=== PATIENT | male | born 1950 | race African-American/Black ===

== ENCOUNTER 2017-03-25 16:57 | Observation (INO) | payer MEDICARE ==
[2017-03-25 17:35] LABS: Basophils % (Auto) 0.9 % (0.0-1.8); Eosinophils % (Auto) 9.5 % (0.0-4.3); Hematocrit 34.2 % (35.5-45.6); Hemoglobin 11.6 gm/dl (11.8-15.2); Mean Corpuscular HGB Conc 34 % (32-34); Mean Corpuscular Hemoglobin 31 pg (28-32); Mean Corpuscular Volume 92 fl (84-94); Platelet Count 428 K/mm3 (140-440); Red Blood Count 3.73 M/mm3 (3.65-5.03); Red Cell Distribution Width 13.2 % (13.2-15.2); White Blood Count 7.8 K/mm3 (4.5-11.0)
[2017-03-25 17:49] LABS: Anion Gap 19 mmol/L; BUN/Creatinine Ratio 18.33; Blood Urea Nitrogen 22 mg/dL (9-20); Calcium 8.7 mg/dL (8.4-10.2); Carbon Dioxide 23 mmol/L (22-30); Chloride 93.3 mmol/L (98-107); Glucose 346 mg/dL (75-100); Potassium 4.7 mmol/L (3.6-5.0); Sodium 131 mmol/L (137-145)
--- NOTE | 2017-03-25 18:33 | Emergency Department Report ---
HPI - General Chief Complaint: Hyperglycemia Time Seen by Provider: 03/25/17 18:01 - HPI HPI: This is a 67-year-old Irish male who presents to the emergency department from home with complaint of elevated blood sugar and chest pain. The patient is a insulin-dependent diabetic and records show that he should be on Novolin 70 /30 and Lantus. However he has either confused about his insulin regimen or he is out of the syringe and needles. However there is some home health care nurse that came and checked his blood sugar today and found it to be greater than 500. He says that the chest pain is midsternal, around his CABG scar and started about 4-5 hours ago. He denies any shortness of breath. The patient was here a few weeks ago and had a cardiac cath and then a CABG. He has not taken anything for his symptoms prior to presentation. ED Past Medical Hx - Past Medical History Previous Medical History?: Yes Hx Hypertension: Yes Hx Diabetes: Yes Additional medical history: HIGH CHOLESTEROL - Surgical History Past Surgical History?: Yes Hx Open Heart Surgery: Yes Additional Surgical History: back surgery - Social History Smoking Status: Never Smoker Substance Use Type: Prescribed - Medications Home Medications: Home Medications Medication Instructions Recorded Confirmed Last Taken Type Insulin Glargine [Lantus VIAL] 50 units SC QHS 03/01/17 03/25/17 02/28/17 History Losartan [Cozaar] 100 mg PO QHS 03/01/17 03/25/17 02/28/17 History Lovastatin [Altoprev] 20 mg PO QHS 03/01/17 03/25/17 02/28/17 History metFORMIN [Glucophage] 500 mg PO TID 03/01/17 03/25/17 03/01/17 History Insulin NPH/Regular [NovoLIN 70/30] 40 unit SC BIDDIAB 03/25/17 03/25/17 Unknown History traMADol [Ultram 50 MG tab] 50 mg PO Q6H PRN 03/25/17 03/25/17 Unknown History ED Review of Systems ROS: Stated complaint: HIGH BS Other details as noted in HPI Comment: All other systems reviewed and negative Constitutional: denies: chills, fever Eyes: denies: eye pain, eye discharge, vision change ENT: denies: ear pain, throat pain Respiratory: denies: cough, shortness of breath, wheezing Cardiovascular: chest pain. denies: palpitations Gastrointestinal: denies: abdominal pain, nausea, diarrhea Genitourinary: denies: urgency, dysuria Musculoskeletal: denies: back pain, joint swelling, arthralgia Skin: denies: rash, lesions Neurological: denies: headache, weakness, paresthesias Physical Exam - Physical Exam Vital Signs: Vital Signs 03/25/17 17:02 Temperature 98.3 F Pulse Rate 79 Respiratory 20 Rate Blood Pressure 161/89 O2 Sat by Pulse 98 Oximetry Physical Exam: GENERAL: The patient is well-developed well-nourished. HEENT: Normocephalic. Atraumatic. Extraocular motions are intact. Patient has moist mucous membranes. Pupils equal reactive to light bilaterally. NECK: Supple. Trachea is mid line. CHEST/LUNGS: Clear to auscultation. There is no respiratory distress noted. There is some reproducible midline tenderness to palpation around the area of his bypass scar. HEART/CARDIOVASCULAR: Regular. There is no tachycardia. There is no gallop rub or murmur. ABDOMEN: Abdomen is soft, nontender. Patient has normal bowel sounds. There is no abdominal distention. SKIN: There is no rash. There is no edema. There is no diaphoresis. NEURO: The patient is awake, alert, and oriented. The patient is cooperative. The patient has no focal neurologic deficits. The patient has normal speech. MUSCULOSKELETAL: There is no tenderness or deformity. There is no limitation range of motion. There is no evidence of acute injury. ED Course Vital Signs 03/25/17 17:02 Temperature 98.3 F Pulse Rate 79 Respiratory 20 Rate Blood Pressure 161/89 O2 Sat by Pulse 98 Oximetry ED Medical Decision Making - Lab Data Result diagrams: 03/25/17 17:16 03/25/17 17:16 - EKG Data -: EKG Interpreted by Me EKG shows normal: sinus rhythm, axis, intervals, QRS complexes (Q waves to the inferior leads), ST-T waves (T-wave inversions to the lateral leads) Rate: normal - EKG Data When compared to previous EKG there are: no significant change Interpretation: unchanged when compared t (03/02/17) - Radiology Data Radiology results: report reviewed, image reviewed interpreted by me: Chest x-ray shows some basilar pleural effusions. No obvious pneumonia. No pneumothorax. CT angiography of the chest does not show any pulmonary embolism. There is bilateral pleural effusions greater on left than right. - Medical Decision Making 67-year-old male presents with hyperglycemia and some chest pain that restarted a few hours prior to presentation. He has a recent CABG. His first troponin was elevated at 0.043 and there is no renal insufficiency but it is consistent with his previous troponin elevations. He was given IV insulin and his blood sugar came down to a much more reasonable level. There was no sign of diabetic ketoacidosis. EKG did not show any signs of ST elevation CT. The patient will be admitted to hospital for further evaluation and possible cardio consultation and has been accepted for admission by the hospitalist, Dr. Burgos. - Differential Diagnosis CT, PE, costochondritis, pneumonia, CHF, DKA Critical Care Time: No Critical care attestation.: If time is entered above; I have spent that time in minutes in the direct care of this critically ill patient, excluding procedure time. ED Disposition Clinical Impression: Uncontrolled hypertension, Elevated troponin I level, Hyperglycemia Chest pain Qualifiers: Chest pain type: unspecified Qualified Code(s): R07.9 - Chest pain, unspecified Disposition: OP ADMITTED IP TO THIS HOSP Is pt being admited?: Yes Does the pt Need Aspirin: Yes Condition: Stable Time of Disposition: 23:05
[2017-03-25 18:52] LABS: Bilirubin,Urine NEG (Negative); Blood,Urine NEG (Negative); Ketones,Urine NEG (Negative); Leukocyte Esterase,Urine NEG (Negative); Nitrite,Urine NEG (Negative); Urobilinogen,Urine < 2.0 mg/dL (<2.0); WBC,Urine < 1.0 /HPF (0.0-6.0)
[2017-03-25 19:01] LABS: INR 1.04 (0.87-1.13)
[2017-03-25 19:02] LABS: Partial Thromboplastin Time 30.7 Sec. (24.2-36.6)
[2017-03-25] MEDS ORDERED: NACL ONE (19:13)
--- NOTE | 2017-03-25 19:29 | Admit Criteria Form ---
Admission Criteria Documentation: CHEST PAIN Clinical Indications for Admission to Inpatient Care (Place 'X' for any and all applicable criteria): Admission is indicated for chest pain and ANY ONE of the following(1)(2)(3)(4)(5 ): [ ]I. Angina with acute coronary syndrome (Also use Myocardial Infarction or Angina guideline) [ ]II. Hemodynamic instability [X]III. Angina needing acute intervention as indicated by ALL of the following( 11)(12): [ ]a) Unstable angina is present as indicated by angina that is ANY ONE of the following: [ ]i) New onset [ ]ii) Nocturnal [ ]iii) Prolonged at rest [ ]iv) Progressive [X]b) Angina warrants acute intervention as indicated by ANY ONE of the following: [ ]i) Recurrent angina (e.g, not responding as previously to treatment) [ ]ii) Angina at rest or with low-level activities despite initial medical therapy [ ]iii) New or presumably new ST-segment depression on ECG [ ]iv) Signs or symptoms of heart failure (eg, dyspnea, pulmonary edema) [ ]v) New or worsening mitral regurgitation [ ]vi) Hemodynamic instability [ ]vii) Dangerous arrhythmia (eg, sustained ventricular tachycardia) [ ]viii) History of percutaneous coronary intervention within 6 months [X]ix) History of coronary artery bypass graft surgery [ ]x) RAFFAELE risk score of 2 or greater[A] [X]xi) History of Diabetes(14) [ ]xii) High-risk cardiac ischemia findings on noninvasive testing (e.g, echocardiogram, treadmill testing, nuclear scan) [ ]xiii) Chronic renal insufficiency (ie, estimated GFR less than 60 mL/min/1.732m) [ ]xiv) Left ventricular ejection fraction less than 40% [ ]IV. Evidence of MN (eg, cardiac biomarkers positive, ST-segment elevation on ECG) also use Myocardial Infarction Criteria Form. [ ]V. Pulmonary edema [ ]. Respiratory distress [ ]VII. Chest pain indicative of serious diagnosis other than coronary artery disease (eg, aortic dissection) [X]VIII. Contraindications and/or Inappropriate clinical situations for Observational Care in patients with Chest Pain, when ANY ONE of the following is required: [ ]a) Patient with risk factor for pulmonary embolism, acute coronary syndrome and myocardial infarction (18) [ ]b) Patient with Pulmonary embolism require an average LOS of 4.3 days, therefore emergency department observation management is inappropriate 18,23 [ ]c) Painful condition/s in the elderly, have the highest rate of recidivism after emergency department observation management (10.8%) 20,21 [X]d) Elevated cardiac biomarker requires intensive and exhaustive care (19) [X]IX. General contraindications and/or Inappropriate clinical situations for Observational Care in patients with Chest Pain, when ANY ONE of the following is required: [X]a) Prediction of prolongation of LOS based on ANY ONE of the following may be considered as a contraindication for observational care 2, 3, 4, 5, 6, 7, 8, 9, 10, 11 [X]i) Age > 65 yrs. [ ]ii) Patient arriving by ambulance [ ]iii) Patient with high acuity [ ]iv) Patient requiring vital sign monitoring [ ]v) Patient on IV medication [ ]b) Systolic blood pressures 180mmHg 3,12 [ ]c) Patient with altered mental status including delirium and other alteration of consciousness, (3) [ ]d) Patient whose discharge disposition will be to a correction home or rehabilitation home should not be managed in Emergency Department Observation Unit. CMS rule requires 3 days hospital stay before such placement. 3,13 [ ]e) Patient with failure to thrive due to broad array of etiologies 3,16,17 [ ]f) Inability to ambulate 3,14 Extended stay beyond goal length of stay may be needed for (1)(28): [ ]a) Specific condition diagnosed after evaluation (eg, pulmonary embolism, aortic dissection) [ ]b) Unstable angina [ ]c) Continued suspicion of acute coronary syndrome with inability to complete needed cardiac evaluation (eg, patient clinically unable to undergo stress testing) [ ]d) Myocardial infarction (Contents from ANGINA and CHEST PAIN clinical indications for admission to inpatient care have been integrated in this form) The original [employer] content created by [employer] has been revised. The portions of the content which have been revised are identified through the use of italic text or in bold, and [facility] has neither reviewed nor approved the modified material. All other unmodified content is copyright [employer]. Please see references footnoted in the original [facility] edition 2016 Admission Criteria Met: Yes
--- NOTE | 2017-03-25 20:26 | Cat Scan Report ---
FINAL REPORT EXAM: CT ANGIO CHEST HISTORY: CP, elevated dimer TECHNIQUE: CT the chest CT angiogram with intravenous contrast PRIORS: None. FINDINGS: There has been previous sternotomy. Heart is prominent size with ventricular wall thickening. the thoracic aorta is normal in caliber. No evidence for dissection. There are moderate bilateral layering pleural effusions greater on the right than on the left. There is some compressive atelectasis in the lower lobes. And there is no evidence for filling defect within central pulmonary arteries to suggest presence of acute pulmonary embolus There is no acute abnormality identified in the visualized portion upper abdomen. IMPRESSION: Bilateral pleural effusions greater on the right than on the left No CT evidence for acute pulmonary embolus
[2017-03-25] MEDS ORDERED: NITROSTAT SL PRN (22:28)
[2017-03-25] MEDS ORDERED: ZESTRIL PO ONE (22:28)
[2017-03-25] MEDS ORDERED: SODIUM CHLORIDE FLUSH SYRINGE 10 ML IV PRN (22:28)
--- NOTE | 2017-03-25 22:40 | History and Physical Report ---
History of Present Illness Date of examination: 03/25/17 Date of admission: 03/25/17 Chief complaint: Chest pain History of present illness: This is a 67-year-old [place]ian male who presents to the emergency department from home with complaint of elevated blood sugar and chest pain. The patient is a insulin-dependent diabetic and records show that he should be on Novolin 70 /30 and Lantus. However he has either confused about his insulin regimen or he is out of the syringe and needles. However there is some home health care nurse that came and checked his blood sugar today and found it to be greater than 500. He says that the chest pain is midsternal, around his CABG scar and started about 4-5 hours ago. He denies any shortness of breath. The patient was here a few weeks ago and had a cardiac cath and then a CABG. He has not taken anything for his symptoms prior to presentation. Past History Past Medical History: diabetes, hypertension, hyperlipidemia, CAD Past Surgical History: s/p CABG 2 weeks ago Social history: , lives with family. denies: smoking, alcohol abuse, prescription drug abuse Family history: hypertension Review of System: Constitutional: no fever, no chills, no weight loss Ears, eyes, nose, mouth and throat: no nasal congestion, no nasal discharge, no sinus pressure, no vision change, no red eye. Neck: No neck pain or rigidity. Cardiovascular: + chest pain, no orthopnea, no palpitations, no leg swelling Respiratory: No shortness of breath, no cough, no congestion, no wheezing Gastrointestinal: no abdominal pain, no nausea, no vomiting Genitourinary : no dysuria, no hematuria Musculoskeletal: no joint swelling or muscle ache Integumentary: no rash, no pruritis Neurological: no parathesias, no numbness, no tingling Endocrine: no cold or heat intolerance, no polyuria or polydipsia Hematologic/Lymphatic: no easy bruising, no easy bleeding, no gland swelling Allergic/Immunologic: no urticaria, no angioedema. Medications and Allergies Allergies Allergy/AdvReac Type Severity Reaction Status Date / Time No Known Allergies Allergy Verified 09/27/15 06:17 Home Medications Medication Instructions Recorded Confirmed Last Taken Type Insulin Glargine [Lantus VIAL] 50 units SC QHS 03/01/17 03/25/17 02/28/17 History Losartan [Cozaar] 100 mg PO QHS 03/01/17 03/25/17 02/28/17 History Lovastatin [Altoprev] 20 mg PO QHS 03/01/17 03/25/17 02/28/17 History metFORMIN [Glucophage] 500 mg PO TID 03/01/17 03/25/17 03/01/17 History Insulin NPH/Regular [NovoLIN 70/30] 40 unit SC BIDDIAB 03/25/17 03/25/17 Unknown History traMADol [Ultram 50 MG tab] 50 mg PO Q6H PRN 03/25/17 03/25/17 Unknown History Active Meds: Active Medications Aspirin (Ecotrin) 325 mg PO QDAY [place] Atorvastatin Calcium (Lipitor) 40 mg PO QHS [place] Carvedilol (Coreg) 6.25 mg PO BID [place] Docusate Sodium (Colace) 100 mg PO BID [place] Famotidine (Pepcid) 20 mg PO BID [place] Lisinopril (Zestril) 20 mg PO ONCE ONE Stop: 03/25/17 22:29 Morphine Sulfate (Morphine) 2 mg IV Q5MIN PRN PRN Reason: Chest Pain Nitroglycerin (Nitrostat) 0.4 mg SL Q5M PRN PRN Reason: Chest Pain Sodium Chloride (Sodium Chloride Flush Syringe 10 Ml) 10 ml IV PRN PRN PRN Reason: LINE FLUSH Exam - Physical Exam Narrative exam: GENERAL: This is well-developed well-nourished lying on bed appeared to be in no discomfort. HEENT: Normocephalic. Atraumatic. Extraocular motions are intact. No conjunctival congestion or icterus. Patient has moist mucous membranes. External auditory canal and nares patent bilaterally. NECK: Supple. Trachea midline. No JVD, thyromagaly or lymphadenopathy. CHEST/LUNGS: Clear to auscultated bilaterally. There is no respiratory distress noted, breathing nonlabored. No wheezes crackles or rhonchi. HEART/CARDIOVASCULAR: Regular in rate and rhythm. PMI at the apex. There is no gallop rub or murmur. ABDOMEN: Abdomen is soft, nontender. Patient has normal bowel sounds. There is no abdominal distention. No organomagaly or rigidity. SKIN: There is no rash, no erythrema. There is no diaphoresis. Warm and dry. NEUROLOGY: The patient is awake, alert, and oriented. The patient is cooperative. The patient has normal speech. No focal motor deficit. MUSCULOSKELETAL: No joint effusion or tenderness. Muscle strength equal bilaterally. No muscle wasting. EXTRIMITY: No edema, cyanosis or clubbing. PSYCH: No depression or anxiety noted. Cooperative. - Constitutional Vitals: Temp Pulse Resp BP Pulse Ox 98 F 80 15 177/96 98 03/25/17 18:30 03/25/17 22:34 03/25/17 22:34 03/25/17 22:34 03/25/17 22:34 Results - Labs CBC & Chem 7: 03/25/17 17:16 03/25/17 17:16 Labs: Abnormal lab results 03/25/17 03/25/17 03/25/17 Range/Units 17:02 17:16 17:16 Hgb 11.6 L (11.8-15.2) gm/dl Hct 34.2 L (35.5-45.6) % Wheeler % (Auto) 9.7 H (0.0-7.3) % Eos % (Auto) 9.5 H (0.0-4.3) % Eos # 0.7 H (0.0-0.4) K/mm3 D-Dimer (0-234) ng/mlDDU Sodium 131 L (137-145) mmol/L Chloride 93.3 L (98-107) mmol/L BUN 22 H (9-20) mg/dL Glucose 346 H (75-100) mg/dL POC Glucose 350 H (70-105) Troponin T (0.00-0.029) ng/mL NT-Pro-B Natriuret Pep (0-900) pg/mL Triglycerides (2-149) mg/dL HDL Cholesterol (40-59) mg/dL 03/25/17 03/25/17 03/25/17 Range/Units 18:39 18:39 18:39 Hgb (11.8-15.2) gm/dl Hct (35.5-45.6) % Wheeler % (Auto) (0.0-7.3) % Eos % (Auto) (0.0-4.3) % Eos # (0.0-0.4) K/mm3 D-Dimer 1281.92 H (0-234) ng/mlDDU Sodium (137-145) mmol/L Chloride (98-107) mmol/L BUN (9-20) mg/dL Glucose (75-100) mg/dL POC Glucose (70-105) Troponin T 0.043 H (0.00-0.029) ng/mL NT-Pro-B Natriuret Pep 1109 H (0-900) pg/mL Triglycerides 171 H (2-149) mg/dL HDL Cholesterol 32 L (40-59) mg/dL 03/25/17 03/25/17 Range/Units 18:44 20:36 Hgb (11.8-15.2) gm/dl Hct (35.5-45.6) % Wheeler % (Auto) (0.0-7.3) % Eos % (Auto) (0.0-4.3) % Eos # (0.0-0.4) K/mm3 D-Dimer (0-234) ng/mlDDU Sodium (137-145) mmol/L Chloride (98-107) mmol/L BUN (9-20) mg/dL Glucose (75-100) mg/dL POC Glucose 358 H 155 H (70-105) Troponin T (0.00-0.029) ng/mL NT-Pro-B Natriuret Pep (0-900) pg/mL Triglycerides (2-149) mg/dL HDL Cholesterol (40-59) mg/dL Assessment and Plan Acute chest pain with elevated troponin Coronary artery disease status post CABG on 03/10 Diabetes mellitus type 2 Hypertension, uncontrolled Bilateral pleural effusion CHF with systolic dysfunction - will admit to telemetry bed - monitor with serial CE and EKG, CTA was negative for acute PE - 2-D echo on 03/10 showed EF 35-40% - will place on Aspirin, statin - will place on lovenox therapeutic dose - as needed SL NTG and iv morphin for pain - Monitor BP, add betablocker, ACEI and Lasix - cardiology consult in the am - cardiac diet now, resume home meds - provide DVT Px with lovenox It took me about 45 minutes for initial care of this patient including history and physical, reviewing initial lab results and ER documents, placing admission orders, bedside counseling and coordination of care.
[2017-03-25] MEDS ORDERED: ZOFRAN IV PRN (23:07)
[2017-03-25] MEDS ORDERED: APRESOLINE IV PRN (23:07)
[2017-03-25] MEDS: COREG PO SCH (23:42)
[2017-03-25] MEDS: LASIX IV SCH (23:45)
[2017-03-26 00:13] LABS: Creatine Kinase MB 2.2 ng/mL (0.0-4.0)
[2017-03-26] MEDS ORDERED: DUONEB 0.5 MG-3 MG/3 ML SOLN IH SCH (02:00)
[2017-03-26] MEDS: LASIX IV SCH ×2 (06:20→17:52)
[2017-03-26 06:27] LABS: Creatine Kinase MB 1.8 ng/mL (0.0-4.0)
--- NOTE | 2017-03-26 07:42 | XRay Report ---
AP CHEST History: Chest pain. Findings: CABG changes have been performed since 03/01/17 examination. Mild cardiomegaly and pulmonary venous congestion are suspected on today's exam. Trace left pleural effusion or segmental atelectasis in the left lower lobe is also suspected. The right lung is generally clear. No pneumothorax. Impression: Mild congestive changes as described. Left lower lobe opacity which probably represents segmental atelectasis.
[2017-03-26] MEDS ORDERED: LOVENOX SUB-Q SCH ×3 (09:00→22:00)
[2017-03-26] MEDS: MORPHINE IV PRN (09:11)
--- NOTE | 2017-03-26 09:47 | Consultation ---
History of Present Illness Consult date: 03/26/17 Consult reason: chest pain, known to you History of present illness: Patient is a 67-year-old man with a history of hypertension, diabetes and hyperlipidemia. He also has an ischemic cardiomyopathy, EF 35% and coronary artery disease status post bypass grafting at [facility] 3 weeks ago. He is a poor historian due to language barrier, as he speaks little or no Mauritian. He was brought to this hospital with complaints of hyperglycemia. Glucose of 358 on presentation. In addition to hyperglycemia, patient also described shortness of breath and mid sternal chest pain of sternal scar thus this cardiac consultation. His ECG shows a sinus rhythm with nonspecific inferolateral T-wave abnormalities. No acute ischemic changes when compared to prior ECG. Chest CTA showed bilateral pleural effusion with right greater than the left. There was no evidence of pulmonary embolism. Past History Past Medical History: CAD, diabetes, heart failure, hypertension, hyperlipidemia Past Surgical History: CABG Medications and Allergies Allergies Allergy/AdvReac Type Severity Reaction Status Date / Time No Known Allergies Allergy Verified 09/27/15 06:17 Home Medications Medication Instructions Recorded Confirmed Last Taken Type Insulin Glargine [Lantus VIAL] 50 units SC QHS 03/01/17 03/25/17 02/28/17 History Losartan [Cozaar] 100 mg PO QHS 03/01/17 03/25/17 02/28/17 History Lovastatin [Altoprev] 20 mg PO QHS 03/01/17 03/25/17 02/28/17 History metFORMIN [Glucophage] 500 mg PO TID 03/01/17 03/25/17 03/01/17 History Insulin NPH/Regular [NovoLIN 70/30] 40 unit SC BIDDIAB 03/25/17 03/25/17 Unknown History traMADol [Ultram 50 MG tab] 50 mg PO Q6H PRN 03/25/17 03/25/17 Unknown History Active Meds: Active Medications Albuterol/Ipratropium (Duoneb 0.5 Mg-3 Mg/3 Ml Soln) 1 ampul IH TIDRT [facility] Aspirin (Ecotrin) 325 mg PO QDAY [facility] Atorvastatin Calcium (Lipitor) 40 mg PO QHS [facility] Last Admin: 03/25/17 23:44 Dose: 40 mg Carvedilol (Coreg) 6.25 mg PO BID [facility] Last Admin: 03/25/17 23:42 Dose: 6.25 mg Docusate Sodium (Colace) 100 mg PO BID [place] Enoxaparin Sodium (Lovenox) 80 mg SUB-Q Q12H [place] Famotidine (Pepcid) 20 mg PO BID [place] Furosemide (Lasix) 40 mg IV 0600,1800 [place] Last Admin: 03/26/17 06:20 Dose: 40 mg Hydralazine HCl (Apresoline) 5 mg IV Q30MIN PRN PRN Reason: Hypertension Last Admin: 03/25/17 23:41 Dose: 5 mg Insulin Human Isoph/Insulin Regular (Novolin 70/30) 40 unit SUB-Q BIDDIAB [place] Insulin Human Regular (Novolin R) 0 units SUB-Q ACHS [place] PRN Reason: Protocol Losartan Potassium (Cozaar) 100 mg PO QHS [place] Morphine Sulfate (Morphine) 2 mg IV Q5MIN PRN PRN Reason: Chest Pain Last Admin: 03/26/17 09:11 Dose: 2 mg Nitroglycerin (Nitrostat) 0.4 mg SL Q5M PRN PRN Reason: Chest Pain Ondansetron HCl (Zofran) 4 mg IV Q8H PRN PRN Reason: N/V unrelieved by Reglan Sodium Chloride (Sodium Chloride Flush Syringe 10 Ml) 10 ml IV PRN PRN PRN Reason: LINE FLUSH Physical Examination Vital Signs Temp Pulse Resp BP Pulse Ox 98.3 F 79 20 161/89 98 03/25/17 17:02 03/25/17 17:02 03/25/17 17:02 03/25/17 17:02 03/25/17 17:02 General appearance: no acute distress HEENT: Positive: PERRL Neck: Positive: trachea midline Cardiac: Positive: Reg Rate and Rhythm Lungs: Positive: Decreased Breath Sounds Neuro: Positive: Grossly Intact Results 03/25/17 17:16 03/25/17 17:16 Cardiac Enzymes 03/25/17 03/26/17 Range/Units 23:34 05:17 CK-MB (CK-2) 2.2 1.8 (0.0-4.0) ng/mL Assessment and Plan Uncontrolled Diabetes mellitus Pleural effusion, bilateral no evidence of PE on CTA Hx of Ischemic Cardiomyopathy, EF 35% Hx of CAD with recent CABG
[2017-03-26] MEDS: DUONEB 0.5 MG-3 MG/3 ML SOLN IH SCH ×3 (09:50→20:05)
--- NOTE | 2017-03-26 10:23 | Progress Note ---
Assessment and Plan Assessment and plan: Son at bedside was the Hungarian translator and interpreter Patient is 67-year-old Hungarian speaking man with a history of hypertension, type 2 diabetes mellitus, dyslipidemia, ischemic cardiomyopathy EF 35% and coronary artery disease status post CABG at [facility] approximately 3 weeks ago. He was transferred from here 03/03/2017 for CABG. 1 week after discharge from [facility] he had a left thoracentesis now presents with home health finding blood sugar over 500. Patient also describes shortness of breath and substernal chest pain underwent a sternal scar. CTA of the chest showed no PE but bilateral pleural effusion right greater than left, chest x-ray showed mild congestive changes and some atelectasis. -Coronary artery disease status post CABG: Consulted Cardiology since patient is less than a month out from CABG, ?questionable if he needs to be transferred back to [facility] for another thoracentesis this time on his right lung due to pleural effusion. Chest pains with mildly elevated Troponin but normal CK -MB, I don't believe this is ACS, will defer to Cardiology -Acute on chronic HFrEF: treat with diuresis, cardiology to see -Bilateral pleural effusion as above -Type 2 diabetes mellitus, chronic and uncontrolled-add sliding scale insulin -Hypertension with heart disease: Continue medical management -DVT prophylaxis-SCDs, he was placed on therapeutic dose of Lovenox for acute coronary syndrome by Dr. Burgos, will stop and consult Cardiology full code History Interval history: Patient seen and examined. Follow up on chest pain and hyperglycemia. Chest pain is still present subsequently on the new CABG scar. Overnight uneventful. No n/v or severe headaches. Imaging, old records, testing, labs, nursing notes reviewed. Hospitalist Physical - Physical exam Narrative exam: GEN: WDWN, NAD, AWAKE, ALERT, ORIENTATED x 3 CVS: RRR, NORMAL S1S2 LUNGS/CHEST: CTA B, NORMAL CHEST EXPANSION B, GOOD AIR ENTRY B, chest wall tenderness ABD: SOFT, NTND, GBS, NO REBOUND OR GUARDING MSK: FROM X 4 EXTREMITIES NEURO: CN 2-12 GROSSLY INTACT, NO FOCAL DEFICITS PSY: CALM - Constitutional Vitals: Temp Pulse Resp BP Pulse Ox 98.5 F 74 16 139/72 98 03/26/17 07:10 03/26/17 09:59 03/26/17 09:59 03/26/17 07:10 03/26/17 09:49 General appearance: Present: no acute distress Results - Labs CBC & Chem 7: 03/25/17 17:16 03/25/17 17:16 Labs: Laboratory Last Values WBC 7.8 K/mm3 (4.5-11.0) 03/25/17 17:16 RBC 3.73 M/mm3 (3.65-5.03) 03/25/17 17:16 Hgb 11.6 gm/dl (11.8-15.2) L 03/25/17 17:16 Hct 34.2 % (35.5-45.6) L 03/25/17 17:16 MCV 92 fl (84-94) 03/25/17 17:16 MCH 31 pg (28-32) 03/25/17 17:16 MCHC 34 % (32-34) 03/25/17 17:16 RDW 13.2 % (13.2-15.2) 03/25/17 17:16 Plt Count 428 K/mm3 (140-440) 03/25/17 17:16 Lymph % (Auto) 23.0 % (13.4-35.0) 03/25/17 17:16 [place] % (Auto) 9.7 % (0.0-7.3) H 03/25/17 17:16 Eos % (Auto) 9.5 % (0.0-4.3) H 03/25/17 17:16 Baso % (Auto) 0.9 % (0.0-1.8) 03/25/17 17:16 Lymph # 1.8 K/mm3 (1.2-5.4) 03/25/17 17:16 [place] # 0.8 K/mm3 (0.0-0.8) 03/25/17 17:16 Eos # 0.7 K/mm3 (0.0-0.4) H 03/25/17 17:16 Baso # 0.1 K/mm3 (0.0-0.1) 03/25/17 17:16 Seg Neutrophils % 56.9 % (40.0-70.0) 03/25/17 17:16 Seg Neutrophils # 4.4 K/mm3 (1.8-7.7) 03/25/17 17:16 PT 13.5 Sec. (12.2-14.9) 03/25/17 18:39 INR 1.04 (0.87-1.13) 03/25/17 18:39 APTT 30.7 Sec. (24.2-36.6) 03/25/17 18:39 D-Dimer 1281.92 ng/mlDDU (0-234) H 03/25/17 18:39 VBG pH 7.355 (7.320-7.420) 03/25/17 17:16 Sodium 131 mmol/L (137-145) L 03/25/17 17:16 Potassium 4.7 mmol/L (3.6-5.0) 03/25/17 17:16 Chloride 93.3 mmol/L (98-107) L 03/25/17 17:16 Carbon Dioxide 23 mmol/L (22-30) 03/25/17 17:16 Anion Gap 19 mmol/L 03/25/17 17:16 BUN 22 mg/dL (9-20) H 03/25/17 17:16 Creatinine 1.2 mg/dL (0.8-1.5) 03/25/17 17:16 Estimated GFR > 60 ml/min 03/25/17 17:16 BUN/Creatinine Ratio 18.33 % 03/25/17 17:16 Glucose 346 mg/dL (75-100) H 03/25/17 17:16 POC Glucose 155 (70-105) H 03/25/17 20:36 Calcium 8.7 mg/dL (8.4-10.2) 03/25/17 17:16 Total Creatine Kinase 43 units/L (55-170) L 03/26/17 05:17 CK-MB (CK-2) 1.8 ng/mL (0.0-4.0) 03/26/17 05:17 CK-MB (CK-2) Rel Index 4.1 (0-4) H 03/26/17 05:17 Troponin T 0.073 ng/mL (0.00-0.029) H D 03/26/17 05:17 NT-Pro-B Natriuret Pep 1109 pg/mL (0-900) H 03/25/17 18:39 Triglycerides 171 mg/dL (2-149) H 03/25/17 18:39 Cholesterol 132 mg/dL (50-199) 03/25/17 18:39 LDL Cholesterol Direct 66 mg/dL (50-130) 03/25/17 18:39 HDL Cholesterol 32 mg/dL (40-59) L 03/25/17 18:39 Cholesterol/HDL Ratio 4.12 % 03/25/17 18:39 Urine Color Yellow (Yellow) 03/25/17 18:32 Urine Turbidity Clear (Clear) 03/25/17 18:32 Urine pH 6.0 (5.0-7.0) 03/25/17 18:32 Ur Specific [place] 1.014 (1.003-1.030) 03/25/17 18:32 Urine Protein 100 mg/dl mg/dL (Negative) 03/25/17 18:32 Urine Glucose (UA) >=500 mg/dL (Negative) 03/25/17 18:32 Urine Ketones Neg mg/dL (Negative) 03/25/17 18:32 Urine Blood Neg (Negative) 03/25/17 18:32 Urine Nitrite Neg (Negative) 03/25/17 18:32 Urine Bilirubin Neg (Negative) 03/25/17 18:32 Urine Urobilinogen < 2.0 mg/dL (<2.0) 03/25/17 18:32 Ur Leukocyte Esterase Neg (Negative) 03/25/17 18:32 Urine WBC (Auto) < 1.0 /HPF (0.0-6.0) 03/25/17 18:32 Urine RBC (Auto) 4.0 /HPF (0.0-6.0) 03/25/17 18:32 U Epithel Cells (Auto) < 1.0 /HPF (0-13.0) 03/25/17 18:32
[2017-03-26] MEDS: ECOTRIN PO SCH (11:28)
[2017-03-26] MEDS: COLACE PO SCH ×2 (11:28→22:40)
[2017-03-26] MEDS: PEPCID PO SCH ×2 (11:28→22:40)
[2017-03-26] MEDS: COREG PO SCH ×2 (11:28→22:40)
[2017-03-26] MEDS ORDERED: COZAAR PO SCH (22:00)
[2017-03-27] MEDS: MORPHINE IV PRN (01:42)
[2017-03-27] MEDS: LASIX IV SCH (05:16)
[2017-03-27] MEDS: DUONEB 0.5 MG-3 MG/3 ML SOLN IH SCH (07:54)
[2017-03-27 08:46] VITALS: BP 122/74
--- NOTE | 2017-03-27 09:17 | Discharge Summary ---
Providers - Providers Date of Admission: 03/25/17 22:28 Date of discharge: 03/27/17 Attending physician: MAXINE RICHMOND 03/26/17 08:09 Consult to Physician [CONS] Routine Consulting Provider: DELMER WATSON Reason For Exam: CABG less than 3 weeks, CP, pt known to you Place consult to:: Mima MCKINLEY Notified:: Inés PERSON Was contact made?: Yes If yes, spoke with:: Bella Time called:: 09:10 Primary care physician: FISH PEDDLER Hospitalization Condition: Stable Hospital course: Language line used for Lithuanian senior sales assistant Patient is 67-year-old Lithuanian speaking man with a history of hypertension, type 2 diabetes mellitus, dyslipidemia, ischemic cardiomyopathy EF 35% and coronary artery disease status post CABG at [facility] approximately 3 weeks ago. He was transferred from here 03/03/2017 for CABG. 1 week after discharge from [facility] he had a left thoracentesis now presents with home health finding blood sugar over 500. Patient also describes shortness of breath and substernal chest pain underwent a sternal scar. CTA of the chest showed no PE but bilateral pleural effusion right greater than left, chest x-ray showed mild congestive changes and some atelectasis. -Coronary artery disease status post CABG: Consulted Cardiology since patient is less than a month out from CABG, ?questionable if he needs to be transferred back to [facility] for another thoracentesis this time on his right lung due to pleural effusion. Chest pains with mildly elevated Troponin but normal CK -MB, I don't believe this is ACS, will defer to Cardiology -Acute on chronic HFrEF: treat with diuresis, cardiology to see -Bilateral pleural effusion as above -Type 2 diabetes mellitus, chronic and uncontrolled-add sliding scale insulin -Hypertension with heart disease: Continue medical management -DVT prophylaxis-SCDs, he was placed on therapeutic dose of Lovenox for acute coronary syndrome by Dr. Burgos, will stop and consulted Cardiology full code per Cardiology: "Patient seen and examined Patient admitted for hyperglycemia. He denies chest pain or shortness of breath Cardiac enzymes are non-specifically elevated post bypass surgery. BNP is elevated suggesting high filling pressures. CTA chest showing no PE but evidence of bilateral pleural effusions (right>left). Exam however does not suggest significant pleural effusion. There is crackles on the right side however. Recommend tight blood glucose control, gentle diuresis. No need for thoracentesis. Patient advised to use the home spirometer more frequently in order to treat his compression atelectasis. No other cardiac work-up is needed" all the showroom sales consultant's notes that we will consult note from discharge summary a course of oral up with her quality per cardiology " He denies cp, sob. Disposition: DISCHARGED TO HOME OR SELFCARE Time spent for discharge: 34 minutes Core Measure Documentation - Palliative Care Palliative Care/ Comfort Measures: Not Applicable - Core Measures Any of the following diagnoses?: heart failure - VTE Discharge Requirements Deep Vein Thrombosis/Pulmonary Embolism Present on Admission: No Has pt received <5 days of overlap therapy or INR<2.0: No Anticoagulant overlap therapy prescribed at discharge: No Contraindication No Overlap Therapy order at DC: Not Indicated - Heart Failure Discharge Requirements SHELLY/ARB for LVSD if EF <40%: Yes Beta king at discharge: Yes Exam - Physical Exam Narrative exam: GEN: WDWN, NAD, AWAKE, ALERT, ORIENTATED x 3 CVS: RRR, NORMAL S1S2 LUNGS/CHEST: CTA B, NORMAL CHEST EXPANSION B, GOOD AIR ENTRY B, chest wall tenderness ABD: SOFT, NTND, GBS, NO REBOUND OR GUARDING MSK: FROM X 4 EXTREMITIES NEURO: CN 2-12 GROSSLY INTACT, NO FOCAL DEFICITS PSY: CALM - Constitutional Vitals: Temp Pulse Resp BP Pulse Ox 97.7 F 80 18 122/74 93 03/27/17 07:40 03/27/17 07:54 03/27/17 07:54 03/27/17 07:40 03/27/17 07:54 Plan Activity: other (no strenous activites until cleared by cardiology) Diet: low salt, diabetic Special Instructions: record daily BP diary, record blood sugar diary Durable Medical Equipment Needed Upon Discharge: Nebulizer Follow up with: [facility] [Outside] - 04/15/17 1:45 pm PRIMARY MD RICHARDSON [Primary Care Provider] - 7 Days DELMER WATSON MD [Staff Physician] - 7 Days Prescriptions: Carvedilol [Coreg] 6.25 mg PO BID #60 tablet Furosemide [Lasix TAB] 40 mg PO QDAY #30 tablet Insulin Aspart [NovoLOG Flexpen] 1 dose SQ AC #1 pen Nitroglycerin [Nitrostat] 0.4 mg SL Q5M PRN #15 tablet PRN Reason: Chest Pain Potassium Chloride [K-Dur] 20 meq PO QDAY #30 tablet Ipratropium/Albuterol Sulfate [Duoneb 0.5 mg-3 mg/3 ml Soln] 1 ampul IH TIDRT PRN #30 ampul.neb PRN Reason: Shortness Of Breath
[2017-03-27] MEDS: COLACE PO SCH (09:59)
[2017-03-27] MEDS: PEPCID PO SCH (09:59)
[2017-03-27] MEDS: COREG PO SCH (09:59)
[2017-03-27] MEDS: ECOTRIN PO SCH (09:59)
--- NOTE | 2017-03-27 10:22 | Progress Note ---
Assessment and Plan - Patient Problems (1) Status post coronary artery bypass graft Current Visit: Yes Status: Acute Plan to address problem: Patient's cardiac status is stable, and continue medical therapy for ischemic cardiomyopathy including afterload reducing therapy, and coronary artery disease including oral antiplatelet therapy. Patient is stable for cardiac discharge, instructed follow-up with Dr. Murillo in one week, and has appointment with his cardiothoracic surgeon in 3 weeks. Subjective Date of service: 03/27/17 Interval history: Patient looks and feels better, his blood sugar is under better control, about 120. There are no cardiac complaints. His sternal scar from the recent coronary bypass surgery is healing well. Objective Vital Signs Temp Pulse Pulse Pulse Pulse Resp Resp 03/27/17 10:00 82 03/27/17 07:54 80 18 03/27/17 07:40 97.7 F 80 18 03/27/17 04:00 98.3 F 74 20 03/27/17 00:49 98.5 F 82 20 03/26/17 22:00 80 03/26/17 21:17 97.9 F 81 20 03/26/17 20:25 03/26/17 20:17 78 18 03/26/17 20:05 80 16 03/26/17 20:01 18 03/26/17 17:39 98.3 F 74 12 Resp BP BP Pulse Ox 03/27/17 10:00 20 97 03/27/17 07:54 93 03/27/17 07:40 122/74 95 03/27/17 04:00 129/62 96 03/27/17 00:49 101/55 94 03/26/17 22:00 03/26/17 21:17 125/62 95 03/26/17 20:25 93 03/26/17 20:17 03/26/17 20:05 03/26/17 20:01 03/26/17 17:39 130/67 96 - Physical Examination General: Appears Well, No Apparent Distress HEENT: Positive: PERRL Neck: Positive: trachea midline Cardiac: Positive: Reg Rate and Rhythm Lungs: Positive: Decreased Breath Sounds Neuro: Positive: Grossly Intact Abdomen: Positive: Soft Skin: Positive: Clear Extremities: Absent: edema
== END 2017-03-27 11:47 | disposition home or self-care (01) ==
LOC: ED 16:57 → 4A 22:28
PROVIDERS: ADMIT Internal Medicine; ATTEND Internal Medicine
DX: R07.89 Other chest pain (principal); I25.10 Atherosclerotic heart disease of native coronary artery without angina pectoris; E11.65 Type 2 diabetes mellitus with hyperglycemia; I10 Essential (primary) hypertension; J90 Pleural effusion, not elsewhere classified; I50.20 Unspecified systolic (congestive) heart failure; E78.5 Hyperlipidemia, unspecified; I25.5 Ischemic cardiomyopathy; R79.89 Other specified abnormal findings of blood chemistry; Z95.1 Presence of aortocoronary bypass graft; Z82.49 Family history of ischemic heart disease and other diseases of the circulatory system
CPT/HCPCS: 36415; 71010; 71275; 80048; 80061; 81001; 82550; 82553; 82805; 82962; 83880; 84484; 85025; 85379; 85610; 85730; 93005; 93010; 94640; 96372; 96374; 96375; 96376; 99285; A9270; G0378; J0360; J1650; J1940; J2270; Q9967; J1815

== ENCOUNTER 2017-09-07 11:55 | Outpatient (CLI) | payer MEDICARE ==
--- NOTE | 2017-09-07 12:53 | Nuclear Medicine Report ---
LUNG SCAN, VENTILATION AND PERFUSION: History: Shortness of breath. Findings: Inhalation of Xenon gas demonstrates a normal distribution of the activity throughout both lungs. The wash out phases show no focal retention of activity. After injection of Technetium 99m macroaggregated albumin gamma camera imaging of the lungs in multiple projections demonstrates normal pulmonary contours with a homogeneous distribution of activity. No focal areas of perfusion deficiency are identified. IMPRESSION: Normal study.
== END 2017-09-07 11:56 | disposition home or self-care (01) ==
LOC: NM 11:55
PROVIDERS: ATTEND Internal Medicine
DX: R06.02 Shortness of breath (principal)
CPT/HCPCS: 78582; A9540; A9558

== ENCOUNTER 2017-10-22 13:33 | Emergency (ER) | payer MEDICARE ==
[2017-10-22 13:54] VITALS: BP 121/73
[2017-10-22 14:37] LABS: Basophils # (Auto) 0.1 K/mm3 (0.0-0.1); Basophils % (Auto) 0.7 % (0.0-1.8); Eosinophils # (Auto) 0.8 K/mm3 (0.0-0.4); Eosinophils % (Auto) 8.8 % (0.0-4.3); Hematocrit 42.8 % (35.5-45.6); Hemoglobin 14.5 gm/dl (11.8-15.2); Lymphocytes # (Auto) 2.6 K/mm3 (1.2-5.4); Lymphocytes % (Auto) 27.2 % (13.4-35.0); Mean Corpuscular HGB Conc 34 % (32-34); Mean Corpuscular Hemoglobin 31 pg (28-32); Mean Corpuscular Volume 93 fl (84-94); Monocytes # (Auto) 0.6 K/mm3 (0.0-0.8); Monocytes % (Auto) 6.5 % (0.0-7.3); Platelet Count 266 K/mm3 (140-440); Red Blood Count 4.63 M/mm3 (3.65-5.03); Red Cell Distribution Width 13.6 % (13.2-15.2)
[2017-10-22 14:42] LABS: Bacteria,Urine 1+ /HPF (Negative); Bilirubin,Urine NEG (Negative); Blood,Urine NEG (Negative); Color,Urine Yellow (Yellow); Granular Casts,Urine 3 /LPF; Hyaline Casts,Urine 1 /LPF; Nitrite,Urine NEG (Negative); Urobilinogen,Urine < 2.0 mg/dL (<2.0); WBC,Urine < 1.0 /HPF (0.0-6.0)
[2017-10-22 14:46] LABS: Protein,Urine >500 mg/dL (Negative)
[2017-10-22 14:50] LABS: Calcium 9.3 mg/dL (8.4-10.2)
[2017-10-22 16:33] LABS: Bilirubin,Urine NEG (Negative); Blood,Urine NEG (Negative); Color,Urine Yellow (Yellow); Mucus,Urine FEW /HPF; Nitrite,Urine NEG (Negative); Urobilinogen,Urine < 2.0 mg/dL (<2.0)
[2017-10-22 16:37] LABS: Protein,Urine >500 mg/dL (Negative)
== END 2017-10-23 02:00 | disposition left against medical advice (07) ==
LOC: ED 13:33
DX: I10 Essential (primary) hypertension (principal); Z53.21 Procedure and treatment not carried out due to patient leaving prior to being seen by health care provider
CPT/HCPCS: 36415; 80048; 81001; 82805; 82962; 85025

== ENCOUNTER 2017-10-23 10:49 | Inpatient (IN) | payer MEDICARE ==
[2017-10-23] MEDS ORDERED: BABY ASPIRIN PO ONE (11:31)
--- NOTE | 2017-10-23 11:37 | Emergency Department Report ---
ED Chest Pain HPI - General Chief Complaint: Hyperglycemia Stated Complaint: HIGH BLOOD SUGAR Time Seen by Provider: 10/23/17 11:26 Source: patient Mode of arrival: Ambulatory Limitations: No Limitations - History of Present Illness Initial Comments: Patient is 67 year old Malaysian male, he presented to the ER with chest pain started yesterday. Patient described his chest pain as substernal, heaviness does not radiate. Patient denied any fever or shortness of breath. Patient had CABG at [facility] 7 month ago. Patient denied any nausea or vomiting or headache. MD Complaint: chest pain -: days(s) Onset: during rest Pain Location: substernal Pain Radiation: none Quality: tightness, heaviness Improves With: nothing Worsens With: nothing Treatments Prior to Arrival: none - Related Data Home Medications Medication Instructions Recorded Confirmed Last Taken Aspirin BABY CHEW TAB 81 mg PO QDAY MDD 81mg 04/22/17 04/22/17 04/20/17 08:00 81mg Clopidogrel [Plavix] 75 mg PO 4XD MDD 75mg 04/22/17 04/22/17 04/18/17 08:00 75mg Lisinopril [Zestril TAB] 5 mg PO QDAY MDD 5mg 04/22/17 04/22/17 04/20/17 08:00 5mg Metoprolol [Lopressor TAB] 50 mg PO BID 04/22/17 04/22/17 04/20/17 21:00 50mg Previous Rx's Medication Instructions Recorded Last Taken Type Carvedilol [Coreg] 6.25 mg PO BID #60 tablet 03/27/17 04/08/17 21:00 Rx 6.25mg Famotidine [Pepcid] 20 mg PO BID #30 tablet 03/27/17 Unknown Rx Furosemide [Lasix TAB] 40 mg PO QDAY #30 tablet 03/27/17 04/20/17 08:00 Rx 40mg Insulin Aspart [NovoLOG Flexpen] 1 dose SQ AC #1 pen 03/27/17 Unknown Rx Insulin Glargine [Lantus VIAL] 50 units SC QHS #30 03/27/17 04/20/17 08:00 Rx 50units Ipratropium/Albuterol Sulfate 1 ampul IH TIDRT PRN #30 ampul.neb 03/27/17 08:00 Rx [DUONEB *Not for PRN Use*] 1ampule Losartan [Cozaar] 100 mg PO QHS #30 03/27/17 04/16/17 21:00 Rx 100mg Lovastatin [Altoprev] 20 mg PO QHS #30 03/27/17 04/08/17 21:00 Rx 20mg Nitroglycerin [Nitrostat] 0.4 mg SL Q5M PRN #15 tablet 03/27/17 04/20/17 08:00 Rx 0.4mg Potassium Chloride [K-Dur] 20 meq PO QDAY #30 tablet 03/27/17 04/16/17 08:00 Rx 20meq traMADol [Ultram 50 MG tab] 50 mg PO Q6H PRN #30 03/27/17 04/20/17 20:00 Rx 50mg guaiFENesin DM [Robitussin Dm] 10 ml PO Q6HR #1 udc 04/23/17 Unknown Rx Allergies Allergy/AdvReac Type Severity Reaction Status Date / Time No Known Allergies Allergy Verified 10/23/17 10:53 Heart Score - HEART Score History: Moderately suspicious EKG: Non-specific Age: > 65 Risk factors: > 3 risk factors or hx of atherosclerotic disease Troponin: < normal limit HEART Score: 6 - Critical Actions Critical Actions: 4-6 pts:12-16.6% risk of adverse cardiac event. Should be admitted ED Review of Systems ROS: Stated complaint: HIGH BLOOD SUGAR Other details as noted in HPI Comment: All other systems reviewed and negative Constitutional: denies: chills, fever Cardiovascular: chest pain. denies: palpitations, dyspnea on exertion Gastrointestinal: denies: abdominal pain, nausea, vomiting, diarrhea, constipation, hematemesis Musculoskeletal: denies: back pain, joint swelling Neurological: denies: headache, weakness, numbness, paresthesias ED Past Medical Hx - Past Medical History Hx Hypertension: Yes Hx Heart Attack/AMI: Yes Hx Diabetes: Yes Additional medical history: HIGH CHOLESTEROL - Surgical History Hx Open Heart Surgery: Yes Additional Surgical History: back surgery - Social History Smoking Status: Never Smoker Substance Use Type: None - Medications Home Medications: Home Medications Medication Instructions Recorded Confirmed Last Taken Type Carvedilol [Coreg] 6.25 mg PO BID #60 tablet 03/27/17 04/22/17 04/08/17 21:00 Rx 6.25mg Famotidine [Pepcid] 20 mg PO BID #30 tablet 03/27/17 Unknown Rx Furosemide [Lasix TAB] 40 mg PO QDAY #30 tablet 03/27/17 04/22/17 04/20/17 08: 00 Rx 40mg Insulin Aspart [NovoLOG Flexpen] 1 dose SQ AC #1 pen 03/27/17 Unknown Rx Insulin Glargine [Lantus VIAL] 50 units SC QHS #30 03/27/17 04/22/17 04/20/17 08 :00 Rx 50units Ipratropium/Albuterol Sulfate 1 ampul IH TIDRT PRN #30 ampul.neb 03/27/1704/01/17 08:00 Rx [DUONEB *Not for PRN Use*] 1ampule Losartan [Cozaar] 100 mg PO QHS #30 03/27/17 04/22/17 04/16/17 21:00 Rx 100mg Lovastatin [Altoprev] 20 mg PO QHS #30 03/27/17 04/22/17 04/08/17 21:00 Rx 20mg Nitroglycerin [Nitrostat] 0.4 mg SL Q5M PRN #15 tablet 03/27/17 04/22/17 08:00 Rx 0.4mg Potassium Chloride [K-Dur] 20 meq PO QDAY #30 tablet 03/27/17 04/22/17 04/16/17 08:00 Rx 20meq traMADol [Ultram 50 MG tab] 50 mg PO Q6H PRN #30 03/27/17 04/22/17 04/20/17 20: 00 Rx 50mg Aspirin BABY CHEW TAB 81 mg PO QDAY MDD 81mg 04/22/17 04/22/17 04/20/17 08:00 History 81mg Clopidogrel [Plavix] 75 mg PO 4XD MDD 75mg 04/22/17 04/22/17 04/18/17 08:00 History 75mg Lisinopril [Zestril TAB] 5 mg PO QDAY MDD 5mg 04/22/17 04/22/17 04/20/17 08:00 History 5mg Metoprolol [Lopressor TAB] 50 mg PO BID 04/22/17 04/22/1704/20/17 21:00 History 50mg guaiFENesin DM [Robitussin Dm] 10 ml PO Q6HR #1 udc 04/23/17 Unknown Rx ED Physical Exam - General Limitations: No Limitations General appearance: alert, in no apparent distress - Head Head exam: Present: atraumatic, normocephalic, normal inspection - Eye Eye exam: Present: normal appearance, PERRL Pupils: Present: normal accommodation - ENT ENT exam: Present: normal exam, normal orophraynx, mucous membranes moist - Neck Neck exam: Present: normal inspection, full ROM. Absent: tenderness, meningismus - Respiratory Respiratory exam: Present: normal lung sounds bilaterally. Absent: respiratory distress, wheezes, rales, rhonchi, stridor, chest wall tenderness, accessory muscle use, decreased breath sounds, prolonged expiratory - Cardiovascular Cardiovascular Exam: Present: regular rate, normal rhythm, normal heart sounds - GI/Abdominal GI/Abdominal exam: Present: soft, normal bowel sounds, organomegaly. Absent: distended, tenderness, guarding, rebound, rigid, mass, bruit, pulsatile mass, hernia - Extremities Exam Extremities exam: Present: normal inspection - Back Exam Back exam: Present: normal inspection, full ROM. Absent: tenderness, CVA tenderness (R), CVA tenderness (L), muscle spasm, paraspinal tenderness, vertebral tenderness - Neurological Exam Neurological exam: Present: alert, oriented X3, CN II-XII intact, normal gait. Absent: motor sensory deficit - Skin Skin exam: Present: warm, intact, normal color. Absent: cyanosis, diaphoretic, erythema, urticaria ED Course Vital Signs 10/23/17 10/23/17 10/23/17 10:54 11:40 13:45 Temperature 97.7 F Pulse Rate 60 71 62 Respiratory 18 16 16 Rate Blood Pressure 165/76 Blood Pressure 187/90 176/63 [Right] O2 Sat by Pulse 97 97 97 Oximetry 10/23/17 15:41 Temperature Pulse Rate 71 Respiratory 16 Rate Blood Pressure Blood Pressure 176/83 [Right] O2 Sat by Pulse 97 Oximetry ED Medical Decision Making - Lab Data Result diagrams: 10/23/17 11:19 10/23/17 11:19 - EKG Data -: EKG Interpreted by Ut EKG shows normal: sinus rhythm Rate: normal - EKG Data Interpretation: no acute changes - Radiology Data Radiology results: report reviewed Chest x-ray showed no acute abnormalities. - Medical Decision Making Discussed with Dr. Syed, presented the patient to him, he agreed to admit the patient to his service. Critical care attestation.: If time is entered above; I have spent that time in minutes in the direct care of this critically ill patient, excluding procedure time. ED Disposition Clinical Impression: Hyperglycemia Chest pain Qualifiers: Chest pain type: unspecified Qualified Code(s): R07.9 - Chest pain, unspecified Disposition: DC-09 OP ADMIT IP TO THIS HOSP Is pt being admited?: Yes Condition: Stable
[2017-10-23 11:42] LABS: Basophils % (Auto) 0.6 % (0.0-1.8); Eosinophils # (Auto) 0.8 K/mm3 (0.0-0.4); Eosinophils % (Auto) 10.5 % (0.0-4.3); Hematocrit 43.4 % (35.5-45.6); Lymphocytes % (Auto) 27.3 % (13.4-35.0); Mean Corpuscular HGB Conc 34 % (32-34); Mean Corpuscular Hemoglobin 32 pg (28-32); Mean Corpuscular Volume 93 fl (84-94); Monocytes # (Auto) 0.4 K/mm3 (0.0-0.8); Monocytes % (Auto) 5.3 % (0.0-7.3); Platelet Count 244 K/mm3 (140-440); Red Blood Count 4.68 M/mm3 (3.65-5.03); Red Cell Distribution Width 12.8 % (13.2-15.2)
[2017-10-23 11:59] LABS: Calcium 8.6 mg/dL (8.4-10.2)
[2017-10-23 12:03] LABS: Alanine Aminotransferase 30 units/L (7-56); Albumin 3.5 g/dL (3.9-5)
[2017-10-23 12:12] LABS: Bilirubin,Urine NEG (Negative); Blood,Urine NEG (Negative); Color,Urine Straw (Yellow); Nitrite,Urine NEG (Negative); Urobilinogen,Urine < 2.0 mg/dL (<2.0); WBC,Urine < 1.0 /HPF (0.0-6.0)
[2017-10-23 12:19] LABS: Bilirubin,Direct < 0.2 mg/dL (0-0.2)
--- NOTE | 2017-10-23 12:30 | XRay Report ---
AP CHEST : 10/23/17 10:49:00 CLINICAL: Chest pain. COMPARISON:04/21/17 FINDINGS: Stable cardiomegaly. Mild central vascular congestion. The lungs are normally expanded and clear. No airspace disease or pleural effusion. Median sternotomy wires. IMPRESSION: Cardiomegaly and pulmonary venous hypertension. No pulmonary edema.
--- NOTE | 2017-10-23 17:00 | History and Physical Report ---
History of Present Illness Date of examination: 10/23/17 Date of admission: 10/23/17 12:51 Chief complaint: Chief complaint:Chest pain since yesterday. History of present illness: History of present illness: 67-year-old Amharic male comes in for chest pain since yesterday. Pain is dull in character about 8/10 intensity. Substernal and not radiating. Not associated with diaphoresis and palpitations or shortness of breath. No recent travel. No fever or chills. Chest pain is intermittent in nature. Patient has history of hypertension coronary artery disease hyperlipidemia and insulin-dependent diabetes. No previous heart attacks. No syncope no seizures. Past History Past Medical History: CAD, COPD, diabetes, hypertension, hyperlipidemia Past Surgical History: Other (back surgery) Social history: no significant social history, lives with family, full code Family history: diabetes Medications and Allergies Allergies Allergy/AdvReac Type Severity Reaction Status Date / Time No Known Allergies Allergy Verified 10/23/17 10:53 Home Medications Medication Instructions Recorded Confirmed Last Taken Type Carvedilol [Coreg] 6.25 mg PO BID #60 tablet 03/27/17 04/22/17 04/08/17 21:00 Rx 6.25mg Famotidine [Pepcid] 20 mg PO BID #30 tablet 03/27/17 Unknown Rx Furosemide [Lasix TAB] 40 mg PO QDAY #30 tablet 03/27/17 04/22/17 04/20/17 08: 00 Rx 40mg Insulin Aspart [NovoLOG Flexpen] 1 dose SQ AC #1 pen 03/27/17 Unknown Rx Insulin Glargine [Lantus VIAL] 50 units SC QHS #30 03/27/17 04/22/17 04/20/17 08 :00 Rx 50units Ipratropium/Albuterol Sulfate 1 ampul IH TIDRT PRN #30 ampul.neb 03/27/1704/01/17 08:00 Rx [DUONEB *Not for PRN Use*] 1ampule Losartan [Cozaar] 100 mg PO QHS #30 03/27/17 04/22/17 04/16/17 21:00 Rx 100mg Lovastatin [Altoprev] 20 mg PO QHS #30 03/27/17 04/22/17 04/08/17 21:00 Rx 20mg Nitroglycerin [Nitrostat] 0.4 mg SL Q5M PRN #15 tablet 03/27/17 04/22/17 08:00 Rx 0.4mg Potassium Chloride [K-Dur] 20 meq PO QDAY #30 tablet 03/27/17 04/22/17 04/16/17 08:00 Rx 20meq traMADol [Ultram 50 MG tab] 50 mg PO Q6H PRN #30 03/27/17 04/22/17 04/20/17 20: 00 Rx 50mg Aspirin BABY CHEW TAB 81 mg PO QDAY MDD 81mg 04/22/17 04/22/17 04/20/17 08:00 History 81mg Clopidogrel [Plavix] 75 mg PO 4XD MDD 75mg 04/22/17 04/22/17 04/18/17 08:00 History 75mg Lisinopril [Zestril TAB] 5 mg PO QDAY MDD 5mg 04/22/17 04/22/17 04/20/17 08:00 History 5mg Metoprolol [Lopressor TAB] 50 mg PO BID 04/22/17 04/22/17 04/20/17 21:00 History 50mg guaiFENesin DM [Robitussin Dm] 10 ml PO Q6HR #1 udc 04/23/17 Unknown Rx Review of Systems All systems: negative Constitutional: no weight loss, no weight gain, no fever, no chills Ears, nose, mouth and throat: no dysphagia, no hoarseness, no sore throat, no swelling in mouth, no swelling in throat Cardiovascular: chest pain, high blood pressure, no orthopnea, no palpitations, no rapid/irregular heart beat, no edema, no syncope, no lightheadedness, no shortness of breath, no dyspnea on exertion, no paroxysmal nocturnal dyspnea, no claudication, no phlebitis Respiratory: no cough, no cough with sputum, no excessive sputum, no hemoptysis , no shortness of breath, no dyspnea on exertion Gastrointestinal: no nausea, no vomiting, no diarrhea, no constipation, no change in bowel habits, no hematemesis, no coffee ground emesis Genitourinary Male: no dysuria, no hematuria, no flank pain, no discharge, no urinary frequency, no urinary hesitancy, no nocturia Rectal: no pain Musculoskeletal: no neck stiffness, no neck pain, no shooting arm pain, no arm numbness/tingling, no low back pain, no shooting leg pain, no leg numbness/ tingling, no redness of joints Integumentary: no rash, no pruritis, no redness, no sores, no wounds, no jaundice, no boils, no blisters Neurological: no head injury, no transient paralysis, no paralysis, no weakness , no parathesias, no numbness, no tingling, no seizures, no syncope, no tremors , no ataxia, no lack of coordination Psychiatric: no anxiety, no memory loss, no change in sleep habits, no sleep disturbances, no insomnia, no hypersomnia, no change in appetite, no change in libido Endocrine: no cold intolerance, no heat intolerance, no polyphagia, no excessive thirst, no polydipsia Hematologic/Lymphatic: no easy bruising, no easy bleeding Allergic/Immunologic: no urticaria, no allergic rhinitis, no wheezing Exam - Physical Exam Narrative exam: Lying in bed comfortably - Constitutional Vitals: Temp Pulse Resp BP Pulse Ox 97.7 F 71 16 176/83 97 10/23/17 10:54 10/23/17 15:41 10/23/17 15:41 10/23/17 15:41 10/23/17 15:41 General appearance: Present: no acute distress, well-nourished - EENT Eyes: Present: PERRL ENT: hearing intact, clear oral mucosa - Neck Neck: Present: supple, normal ROM - Respiratory Respiratory effort: normal Respiratory: bilateral: CTA - Cardiovascular Heart rate: 80 Rhythm: regular Heart Sounds: Present: S1 & S2. Absent: rub, click - Extremities Extremities: no ischemia, pulses intact, pulses symmetrical, No edema Peripheral Pulses: within normal limits - Abdominal General gastrointestinal: Present: soft, non-tender, non-distended, normal bowel sounds Male genitourinary: Present: normal - Rectal Rectal Exam: deferred - Integumentary Integumentary: Present: clear, warm, dry - Musculoskeletal Musculoskeletal: gait normal, strength equal bilaterally - Psychiatric Psychiatric: appropriate mood/affect, intact judgment & insight - Neurologic Neurologic: CNII-XII intact, moves all extremities Results - Labs CBC & Chem 7: 10/23/17 11:19 10/23/17 11:19 Labs: Laboratory Last Values WBC 7.4 K/mm3 (4.5-11.0) 10/23/17 11:19 RBC 4.68 M/mm3 (3.65-5.03) 10/23/17 11:19 Hgb 15.0 gm/dl (11.8-15.2) 10/23/17 11:19 Hct 43.4 % (35.5-45.6) 10/23/17 11:19 MCV 93 fl (84-94) 10/23/17 11:19 MCH 32 pg (28-32) 10/23/17 11:19 MCHC 34 % (32-34) 10/23/17 11:19 RDW 12.8 % (13.2-15.2) L 10/23/17 11:19 Plt Count 244 K/mm3 (140-440) 10/23/17 11:19 Lymph % (Auto) 27.3 % (13.4-35.0) 10/23/17 11:19 [place] % (Auto) 5.3 % (0.0-7.3) 10/23/17 11:19 Eos % (Auto) 10.5 % (0.0-4.3) H 10/23/17 11:19 Baso % (Auto) 0.6 % (0.0-1.8) 10/23/17 11:19 Lymph # 2.0 K/mm3 (1.2-5.4) 10/23/17 11:19 [place] # 0.4 K/mm3 (0.0-0.8) 10/23/17 11:19 Eos # 0.8 K/mm3 (0.0-0.4) H 10/23/17 11:19 Baso # 0.0 K/mm3 (0.0-0.1) 10/23/17 11:19 Seg Neutrophils % 56.3 % (40.0-70.0) 10/23/17 11:19 Seg Neutrophils # 4.2 K/mm3 (1.8-7.7) 10/23/17 11:19 VBG pH 7.270 (7.320-7.420) L 10/23/17 11:19 Sodium 134 mmol/L (137-145) L 10/23/17 11:19 Potassium 5.5 mmol/L (3.6-5.0) H 10/23/17 11:19 Chloride 96.2 mmol/L (98-107) L 10/23/17 11:19 Carbon Dioxide 25 mmol/L (22-30) 10/23/17 11:19 Anion Gap 18 mmol/L 10/23/17 11:19 BUN 40 mg/dL (9-20) H 10/23/17 11:19 Creatinine 1.6 mg/dL (0.8-1.5) H 10/23/17 11:19 Estimated GFR 43 ml/min 10/23/17 11:19 BUN/Creatinine Ratio 25 % 10/23/17 11:19 Glucose 482 mg/dL (75-100) H 10/23/17 11:19 POC Glucose 388 (70-105) H 10/23/17 13:38 Calcium 8.6 mg/dL (8.4-10.2) 10/23/17 11:19 Total Bilirubin 0.30 mg/dL (0.1-1.2) 10/23/17 11:41 Direct Bilirubin < 0.2 mg/dL (0-0.2) 10/23/17 11:41 Indirect Bilirubin 0.1 mg/dL 10/23/17 11:41 AST 24 units/L (5-40) 10/23/17 11:41 ALT 30 units/L (7-56) 10/23/17 11:41 Alkaline Phosphatase 117 units/L (35-129) 10/23/17 11:41 Troponin T 0.027 ng/mL (0.00-0.029) 10/23/17 11:19 NT-Pro-B Natriuret Pep 361.3 pg/mL (0-900) 10/23/17 11:41 Total Protein 6.9 g/dL (6.3-8.2) 10/23/17 11:41 Albumin 3.5 g/dL (3.9-5) L 10/23/17 11:41 Albumin/Globulin Ratio 1.0 % 10/23/17 11:41 Urine Color Straw (Yellow) 10/23/17 Unknown Urine Turbidity Clear (Clear) 10/23/17 Unknown Urine pH 6.0 (5.0-7.0) 10/23/17 Unknown Ur Specific [place] 1.020 (1.003-1.030) 10/23/17 Unknown Urine Protein 100 mg/dl mg/dL (Negative) 10/23/17 Unknown Urine Glucose (UA) >=500 mg/dL (Negative) 10/23/17 Unknown Urine Ketones Neg mg/dL (Negative) 10/23/17 Unknown Urine Blood Neg (Negative) 10/23/17 Unknown Urine Nitrite Neg (Negative) 10/23/17 Unknown Urine Bilirubin Neg (Negative) 10/23/17 Unknown Urine Urobilinogen < 2.0 mg/dL (<2.0) 10/23/17 Unknown Ur Leukocyte Esterase Neg (Negative) 10/23/17 Unknown Urine WBC (Auto) < 1.0 /HPF (0.0-6.0) 10/23/17 Unknown Urine RBC (Auto) 2.0 /HPF (0.0-6.0) 10/23/17 Unknown U Epithel Cells (Auto) < 1.0 /HPF (0-13.0) 10/23/17 Unknown Short CBC 10/23/17 Range/Units 11:19 WBC 7.4 (4.5-11.0) K/mm3 Hgb 15.0 (11.8-15.2) gm/dl Hct 43.4 (35.5-45.6) % Plt Count 244 (140-440) K/mm3 BMP 10/23/17 11:19 Sodium 134 L Potassium 5.5 H Chloride 96.2 L Carbon Dioxide 25 BUN 40 H Creatinine 1.6 H Glucose 482 H Calcium 8.6 Cardiac Enzymes 10/23/17 Range/Units 11:19 Troponin T 0.027 (0.00-0.029) ng/mL Liver Function 10/23/17 Range/Units 11:41 Total Bilirubin 0.30 (0.1-1.2) mg/dL Direct Bilirubin < 0.2 (0-0.2) mg/dL AST 24 (5-40) units/L ALT 30 (7-56) units/L Alkaline Phosphatase 117 (35-129) units/L Albumin 3.5 L (3.9-5) g/dL Urine 10/23/17 Range/Units Unknown Urine Color Straw (Yellow) Urine pH 6.0 (5.0-7.0) Ur Specific [place] 1.020 (1.003-1.030) Urine Protein 100 mg/dl (Negative) mg/dL Urine Glucose (UA) >=500 (Negative) mg/dL - Imaging and Cardiology EKG: report reviewed (normal sinus rhythm no acute changes EKG interpreted by me ) Chest x-ray: report reviewed (no abnormal findings) Assessment and Plan Advance Directives: Yes (full code) VTE prophylaxis?: Chemical Plan of care discussed with patient/family: Yes - Patient Problems (1) Chest pain Current Visit: Yes Status: Acute Qualifiers: Chest pain type: unspecified Qualified Code(s): R07.9 - Chest pain, unspecified Plan to address problem: Chest pain workup.Serial cardiac enzymes and Lexiscan in the morning. Differential diagnoses of costochondritis and gastroesophageal reflux disease to be considered. Costochondritis unlikely. Patient does not have any chest wall tenderness. (2) Acute kidney injury Current Visit: Yes Status: Acute Plan to address problem: patient on Lasix 20 mg twice a day. We will decrease it to once a day.. Increased creatinine probably secondary to volume depletion. (3) Uncontrolled hypertension Current Visit: No Status: Chronic Plan to address problem: Adjust the medications. Continue Coreg 6.25 twice a day .Patient on lisinopril 5 mg once a day to prevent diabetic nephropathy. We will stop the lisinopril and start losartan `100 mg daily for better control of blood pressure.We will stop the metoprolol because the patient is on Coreg. (4) Hyperkalemia Current Visit: Yes Status: Acute Plan to address problem: patient given sodium bicarbonate and This should correct the hyperkale. Etiology of her hyperkalemia unclear. (5) IDDM (insulin dependent diabetes mellitus) Current Visit: Yes Status: Chronic Plan to address problem: continue Insulin and coverage.Check hemoglobin A1c (6) HLD (hyperlipidemia) Current Visit: No Status: Chronic Qualifiers: Hyperlipidemia type: mixed hyperlipidemia Qualified Code(s): E78.2 - Mixed hyperlipidemia Plan to address problem: continue statins (7) Gastroesophageal reflux disease Current Visit: Yes Status: Chronic Qualifiers: Esophagitis presence: without esophagitis Qualified Code(s): K21.9 - Gastro -esophageal reflux disease without esophagitis Plan to address problem: continue famotidine 20 mg twice a day (8) COPD (chronic obstructive pulmonary disease) Current Visit: Yes Status: Chronic Qualifiers: Chronic bronchitis type: unspecified Plan to address problem: continue duo nebs. (9) DVT prophylaxis Current Visit: No Status: Acute Plan to address problem: Patient initiated on Lovenox 40 mg subcutaneous once a day.
[2017-10-23] MEDS ORDERED: ULTRAM PO PRN (17:07)
[2017-10-23] MEDS ORDERED: NITROSTAT SL PRN (17:07)
[2017-10-23] MEDS ORDERED: DUONEB *Not for PRN Use IH (17:07)
[2017-10-23] MEDS ORDERED: NON-FORMULARY (Aspirin Baby Chew Tab 81 MG) PO SCH (17:15)
[2017-10-23] MEDS ORDERED: ZOFRAN IV PRN (17:21)
[2017-10-23] MEDS ORDERED: DULCOLAX PR PRN (17:21)
[2017-10-23] MEDS ORDERED: PHENERGAN PR PRN (17:21)
[2017-10-23] MEDS ORDERED: TYLENOL PO PRN (17:21)
[2017-10-23] MEDS ORDERED: PERCOCET 5/325 PO PRN (17:21)
[2017-10-23] MEDS ORDERED: PLAVIX PO SCH (18:00)
[2017-10-23] MEDS: GUAIFENESIN DM SYRUP PO SCH ×2 (18:22→23:34)
[2017-10-23] MEDS ORDERED: ZESTRIL PO SCH (18:30)
[2017-10-23] MEDS ORDERED: CALCIUM CHLORIDE 2,000 MG in NACL 0.9% 100 ML IV ONE (20:00)
[2017-10-23] MEDS ORDERED: SODIUM BICARBONATE IV ONE (20:00)
[2017-10-23] MEDS ORDERED: CALCIUM GLUCONATE 2,000 MG in NACL 0.9% 100 ML IV ONE (20:00)
[2017-10-23] MEDS ORDERED: PEPCID PO SCH (22:00)
[2017-10-23] MEDS ORDERED: LOPRESSOR PO SCH (22:00)
[2017-10-23] MEDS ORDERED: COREG PO SCH (22:00)
[2017-10-23] MEDS ORDERED: COZAAR PO SCH (22:00)
[2017-10-23] MEDS ORDERED: INSULIN GLARGINE 50 UNIT SC SCH (22:00)
[2017-10-23] MEDS ORDERED: NON-FORMULARY (Lovastatin [Altoprev] 20 MG) PO SCH (22:00)
[2017-10-23] MEDS: PRAVACHOL PO SCH (22:40)
[2017-10-23] MEDS: COREG PO SCH (22:41)
[2017-10-23] MEDS: NOVOLOG SUB-Q SCH (22:41)
[2017-10-23] MEDS: LEVEMIR SUB-Q SCH (22:48)
[2017-10-24] MEDS: GUAIFENESIN DM SYRUP PO SCH ×4 (05:21→23:08)
[2017-10-24 06:19] LABS: Basophils # (Auto) 0.1 K/mm3 (0.0-0.1); Basophils % (Auto) 0.9 % (0.0-1.8); Eosinophils % (Auto) 12.1 % (0.0-4.3); Hematocrit 40.8 % (35.5-45.6); Hemoglobin 14.2 gm/dl (11.8-15.2); Lymphocytes % (Auto) 35.3 % (13.4-35.0); Mean Corpuscular HGB Conc 35 % (32-34); Mean Corpuscular Hemoglobin 32 pg (28-32); Mean Corpuscular Volume 92 fl (84-94); Monocytes # (Auto) 0.6 K/mm3 (0.0-0.8); Monocytes % (Auto) 7.3 % (0.0-7.3); Platelet Count 245 K/mm3 (140-440); Red Blood Count 4.45 M/mm3 (3.65-5.03); Red Cell Distribution Width 12.9 % (13.2-15.2)
[2017-10-24 06:23] LABS: Albumin 3.4 g/dL (3.9-5)
[2017-10-24] MEDS ORDERED: INSULIN ASPART SQ SCH (07:30)
[2017-10-24] MEDS: NOVOLOG SUB-Q SCH ×7 (07:30→23:09)
[2017-10-24] MEDS: COREG PO SCH ×2 (09:27→23:08)
[2017-10-24] MEDS: PLAVIX PO SCH (09:27)
[2017-10-24] MEDS: K-DUR PO SCH (09:27)
[2017-10-24] MEDS: BABY ASPIRIN PO SCH (09:27)
[2017-10-24] MEDS: PEPCID PO SCH (09:28)
[2017-10-24] MEDS ORDERED: LASIX PO SCH (10:00)
[2017-10-24] MEDS ORDERED: K-DUR PO SCH (10:00)
[2017-10-24] MEDS ORDERED: APRESOLINE IV PRN (12:13)
--- NOTE | 2017-10-24 12:20 | Progress Note ---
Assessment and Plan Assessment and plan: 67-year-old male with past medical history of coronary artery disease status post CABG in February 2017 and presents with chest pain. Chest pain * Etiology might be secondary to hypertensive urgency, versus coronary artery disease * Optimize blood pressure medications, cardiology has been consulted * Serial troponins negative Acute kidney injury/vasomotor nephropathy -Lasix dose was cut in half, creatinine improved hypertensive urgency Optimize blood pressure medications, switch from losartan to Diovan as it is more potent, continue Coreg Hyperkalemia Was medically treated, now resolved IDDM (insulin dependent diabetes mellitus) Hemoglobin A1c is 12.8, reviewed MAR, for some reason patient only got half of his Levemir last night. Continues with her current dose HLD (hyperlipidemia) continue statins Gastroesophageal reflux disease continue famotidine 20 mg twice a day COPD (chronic obstructive pulmonary disease) Stable, not in exacerbation, nebs as needed, Moderate malnutrition Dietitian consults DVT prophylaxis Patient initiated on Lovenox 40 mg subcutaneous once a day. Pt. Son Mallika Hernandes can be reached at [phone] . History Interval history: Review of systems Constitutional: No fevers, no malaise, no joint pains CVS: No chest pain, no orthopnea, no dyspnea on exertion, no pedal edema GI: No abdominal pain, no diarrhea, no vomiting, no constipation Respiratory: No shortness of breath, no wheezing, no coughing Hospitalist Physical - Physical exam Narrative exam: General.: Appears well, no distress, nontoxic HEENT: Moist mucous membranes, extraocular muscles intact, no lymphadenopathy Neck: supple Cardiac: S1-S2 heard Lungs: clear to auscultation bilaterally Abdomen: soft , nontender, nondistended, bowel sounds positive Extremities: no edema clubbing or cyanosis Skin: no rash or lesions Neurologic: no gross focal deficits Psych: appropriate behavior, appropriate mood, corporative, judgment intact - Constitutional Vitals: Temp Pulse Resp BP Pulse Ox 98.5 F 64 20 185/92 94 10/24/17 08:44 10/24/17 09:27 10/24/17 09:38 10/24/17 09:27 10/24/17 09:26 General appearance: Present: no acute distress, well-nourished Results - Labs CBC & Chem 7: 10/24/17 05:08 10/24/17 05:08 Labs: Laboratory Last Values WBC 8.6 K/mm3 (4.5-11.0) 10/24/17 05:08 RBC 4.45 M/mm3 (3.65-5.03) 10/24/17 05:08 Hgb 14.2 gm/dl (11.8-15.2) 10/24/17 05:08 Hct 40.8 % (35.5-45.6) 10/24/17 05:08 MCV 92 fl (84-94) 10/24/17 05:08 MCH 32 pg (28-32) 10/24/17 05:08 MCHC 35 % (32-34) H 10/24/17 05:08 RDW 12.9 % (13.2-15.2) L 10/24/17 05:08 Plt Count 245 K/mm3 (140-440) 10/24/17 05:08 Lymph % (Auto) 35.3 % (13.4-35.0) H 10/24/17 05:08 [place] % (Auto) 7.3 % (0.0-7.3) 10/24/17 05:08 Eos % (Auto) 12.1 % (0.0-4.3) H 10/24/17 05:08 Baso % (Auto) 0.9 % (0.0-1.8) 10/24/17 05:08 Lymph # 3.0 K/mm3 (1.2-5.4) 10/24/17 05:08 [place] # 0.6 K/mm3 (0.0-0.8) 10/24/17 05:08 Eos # 1.0 K/mm3 (0.0-0.4) H 10/24/17 05:08 Baso # 0.1 K/mm3 (0.0-0.1) 10/24/17 05:08 Seg Neutrophils % 44.4 % (40.0-70.0) 10/24/17 05:08 Seg Neutrophils # 3.8 K/mm3 (1.8-7.7) 10/24/17 05:08 VBG pH 7.270 (7.320-7.420) L 10/23/17 11:19 Sodium 139 mmol/L (137-145) 10/24/17 05:08 Potassium 4.2 mmol/L (3.6-5.0) D 10/24/17 05:08 Chloride 101.2 mmol/L (98-107) 10/24/17 05:08 Carbon Dioxide 27 mmol/L (22-30) 10/24/17 05:08 Anion Gap 15 mmol/L 10/24/17 05:08 BUN 31 mg/dL (9-20) H 10/24/17 05:08 Creatinine 1.3 mg/dL (0.8-1.5) 10/24/17 05:08 Estimated GFR 55 ml/min 10/24/17 05:08 BUN/Creatinine Ratio 24 % 10/24/17 05:08 Glucose 226 mg/dL (75-100) H 10/24/17 05:08 POC Glucose 439 (70-105) H 10/24/17 08:47 Hemoglobin A1c 12.8 % (4-6) H 10/23/17 11:19 Calcium 10.0 mg/dL (8.4-10.2) D 10/24/17 05:08 Total Bilirubin 0.30 mg/dL (0.1-1.2) 10/24/17 05:08 Direct Bilirubin < 0.2 mg/dL (0-0.2) 10/23/17 11:41 Indirect Bilirubin 0.1 mg/dL 10/23/17 11:41 AST 18 units/L (5-40) 10/24/17 05:08 ALT 27 units/L (7-56) 10/24/17 05:08 Alkaline Phosphatase 96 units/L (35-129) 10/24/17 05:08 Troponin T 0.027 ng/mL (0.00-0.029) 10/23/17 11:19 NT-Pro-B Natriuret Pep 361.3 pg/mL (0-900) 10/23/17 11:41 Total Protein 6.7 g/dL (6.3-8.2) 10/24/17 05:08 Albumin 3.4 g/dL (3.9-5) L 10/24/17 05:08 Albumin/Globulin Ratio 1.0 % 10/24/17 05:08 Urine Color Straw (Yellow) 10/23/17 Unknown Urine Turbidity Clear (Clear) 10/23/17 Unknown Urine pH 6.0 (5.0-7.0) 10/23/17 Unknown Ur Specific [place] 1.020 (1.003-1.030) 10/23/17 Unknown Urine Protein 100 mg/dl mg/dL (Negative) 10/23/17 Unknown Urine Glucose (UA) >=500 mg/dL (Negative) 10/23/17 Unknown Urine Ketones Neg mg/dL (Negative) 10/23/17 Unknown Urine Blood Neg (Negative) 10/23/17 Unknown Urine Nitrite Neg (Negative) 10/23/17 Unknown Urine Bilirubin Neg (Negative) 10/23/17 Unknown Urine Urobilinogen < 2.0 mg/dL (<2.0) 10/23/17 Unknown Ur Leukocyte Esterase Neg (Negative) 10/23/17 Unknown Urine WBC (Auto) < 1.0 /HPF (0.0-6.0) 10/23/17 Unknown Urine RBC (Auto) 2.0 /HPF (0.0-6.0) 10/23/17 Unknown U Epithel Cells (Auto) < 1.0 /HPF (0-13.0) 10/23/17 Unknown
--- NOTE | 2017-10-24 12:35 | Consultation ---
History of Present Illness Consult date: 10/24/17 Consult reason: chest pain History of present illness: The patient is a 67-year-old man with coronary artery disease, ischemic cardiomyopathy, who underwent coronary artery bypass surgery at [facility] 6 months ago. Following that, he has been stable, on medical therapy for his coronary disease and ischemic cardiomyopathy. He is admitted to the hospital at this time after being referred from his primary physician's office on a routine visit, they noted that his diabetes was uncontrolled. On presentation to the emergency room, his blood sugar was 482. It is reported that during review of systems, the patient reported some occasional chest pain. At this time, he has no chest pain and no cardiac complaints. 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 Past History Past Medical History: CAD, COPD, diabetes, hypertension, hyperlipidemia Past Surgical History: Other (back surgery) Social history: no significant social history, lives with family, full code Family history: diabetes Medications and Allergies Allergies Allergy/AdvReac Type Severity Reaction Status Date / Time No Known Allergies Allergy Verified 10/23/17 10:53 Home Medications Medication Instructions Recorded Confirmed Last Taken Type Carvedilol [Coreg] 6.25 mg PO BID #60 tablet 03/27/17 04/22/17 04/08/17 21:00 Rx 6.25mg Famotidine [Pepcid] 20 mg PO BID #30 tablet 03/27/17 Unknown Rx Furosemide [Lasix TAB] 40 mg PO QDAY #30 tablet 03/27/17 04/22/17 04/20/17 08: 00 Rx 40mg Insulin Aspart [NovoLOG Flexpen] 1 dose SQ AC #1 pen 03/27/17 Unknown Rx Insulin Glargine [Lantus VIAL] 50 units SC QHS #30 03/27/17 04/22/17 04/20/17 08 :00 Rx 50units Ipratropium/Albuterol Sulfate 1 ampul IH TIDRT PRN #30 ampul.neb 03/27/1704/01/17 08:00 Rx [DUONEB *Not for PRN Use*] 1ampule Losartan [Cozaar] 100 mg PO QHS #30 03/27/17 04/22/17 04/16/17 21:00 Rx 100mg Lovastatin [Altoprev] 20 mg PO QHS #30 03/27/17 04/22/17 04/08/17 21:00 Rx 20mg Nitroglycerin [Nitrostat] 0.4 mg SL Q5M PRN #15 tablet 03/27/17 04/22/17 08:00 Rx 0.4mg Potassium Chloride [K-Dur] 20 meq PO QDAY #30 tablet 03/27/17 04/22/17 04/16/17 08:00 Rx 20meq traMADol [Ultram 50 MG tab] 50 mg PO Q6H PRN #30 03/27/17 04/22/17 04/20/17 20: 00 Rx 50mg Aspirin BABY CHEW TAB 81 mg PO QDAY MDD 81mg 04/22/17 04/22/17 04/20/17 08:00 History 81mg Clopidogrel [Plavix] 75 mg PO 4XD MDD 75mg 04/22/17 04/22/17 04/18/17 08:00 History 75mg Lisinopril [Zestril TAB] 5 mg PO QDAY MDD 5mg 04/22/17 04/22/17 04/20/17 08:00 History 5mg Metoprolol [Lopressor TAB] 50 mg PO BID 04/22/17 04/22/17 04/20/17 21:00 History 50mg guaiFENesin DM [Robitussin Dm] 10 ml PO Q6HR #1 udc 04/23/17 Unknown Rx Active Meds: Active Medications Acetaminophen (Tylenol) 650 mg PO Q4H PRN PRN Reason: Pain MILD(1-3)/Fever >100.5/SANDERS Albuterol/Ipratropium (Duoneb *Not For Prn Use*) 1 ampul IH TIDRT PRN PRN Reason: Shortness Of Breath Aspirin (Baby Aspirin) 81 mg PO QDAY [facility] Last Admin: 10/24/17 09:27 Dose: 81 mg Bisacodyl (Dulcolax) 10 mg AL QDAY PRN PRN Reason: Constipation unrelieved by MOM Carvedilol (Coreg) 12.5 mg PO BID [facility] Last Admin: 10/24/17 09:27 Dose: 12.5 mg Clopidogrel Bisulfate (Plavix) 75 mg PO QDAY [facility] Last Admin: 10/24/17 09:27 Dose: 75 mg Famotidine (Pepcid) 20 mg PO DAILY [facility] Last Admin: 10/24/17 09:28 Dose: 20 mg Guaifenesin (Guaifenesin Dm Syrup) 10 ml PO Q6HR [facility] Last Admin: 10/24/17 05:21 Dose: 10 ml Hydralazine HCl (Apresoline) 10 mg IV Q4HR PRN PRN Reason: BP >160/100 Insulin Aspart (Novolog) 0 units SUB-Q ACHS [facility] PRN Reason: Protocol Last Admin: 10/24/17 07:30 Dose: 8 units Insulin Aspart (Novolog) 6 units SUB-Q AC [facility] Last Admin: 10/24/17 07:30 Dose: 6 units Insulin Detemir (Levemir) 50 units SUB-Q QHS [facility] Last Admin: 10/23/17 22:48 Dose: 25 units Magnesium Hydroxide (Milk Of Magnesia) 30 ml PO Q4H PRN PRN Reason: Constipation Nitroglycerin (Nitrostat) 0.4 mg SL Q5M PRN PRN Reason: Chest Pain Ondansetron HCl (Zofran) 4 mg IV Q8H PRN PRN Reason: N/V unrelieved by Reglan Oxycodone/Acetaminophen (Percocet 5/325) 1 tab PO Q6H PRN PRN Reason: Pain, Moderate (4-6) Last Admin: 10/24/17 09:36 Dose: 1 tab Potassium Chloride (K-Dur) 10 meq PO QDAY [facility] Last Admin: 10/24/17 09:27 Dose: 10 meq Pravastatin Sodium (Pravachol) 20 mg PO QHS [facility] Last Admin: 10/23/17 22:40 Dose: 20 mg Promethazine HCl (Phenergan) 25 mg AL Q6H PRN PRN Reason: N/V IF NPO AND NO IV ACCESS Tramadol HCl (Ultram) 50 mg PO Q6H PRN PRN Reason: Pain Last Admin: 10/23/17 22:40 Dose: 50 mg Valsartan (Diovan) 320 mg PO QDAY [facility] Review of Systems Cardiovascular: chest pain, no orthopnea, no palpitations, no rapid/irregular heart beat, no edema, no syncope, no lightheadedness, no shortness of breath Physical Examination Vital Signs Temp Pulse Resp BP Pulse Ox 97.7 F 60 18 165/76 97 10/23/17 10:54 10/23/17 10:54 10/23/17 10:54 10/23/17 10:54 10/23/17 10:54 General appearance: no acute distress HEENT: Positive: PERRL Neck: Positive: neck supple Cardiac: Positive: Reg Rate and Rhythm Lungs: Positive: Decreased Breath Sounds Neuro: Positive: Grossly Intact Abdomen: Positive: Soft Male genitourinary: Positive: deferred Skin: Positive: Clear Extremities: Absent: edema Results 10/24/17 05:08 10/24/17 05:08 Cardiac Enzymes 10/24/17 Range/Units 05:08 AST 18 (5-40) units/L CBC 10/24/17 Range/Units 05:08 WBC 8.6 (4.5-11.0) K/mm3 RBC 4.45 (3.65-5.03) M/mm3 Hgb 14.2 (11.8-15.2) gm/dl Hct 40.8 (35.5-45.6) % Plt Count 245 (140-440) K/mm3 Lymph # 3.0 (1.2-5.4) K/mm3 [place] # 0.6 (0.0-0.8) K/mm3 Eos # 1.0 H (0.0-0.4) K/mm3 Baso # 0.1 (0.0-0.1) K/mm3 Comprehensive Metabolic Panel 10/24/17 Range/Units 05:08 Sodium 139 (137-145) mmol/L Potassium 4.2 D (3.6-5.0) mmol/L Chloride 101.2 (98-107) mmol/L Carbon Dioxide 27 (22-30) mmol/L BUN 31 H (9-20) mg/dL Creatinine 1.3 (0.8-1.5) mg/dL Glucose 226 H (75-100) mg/dL Calcium 10.0 D (8.4-10.2) mg/dL AST 18 (5-40) units/L ALT 27 (7-56) units/L Alkaline Phosphatase 96 (35-129) units/L Total Protein 6.7 (6.3-8.2) g/dL Albumin 3.4 L (3.9-5) g/dL EKG interpretations - Telemetry EKG Rhythm: Sinus Rhythm Assessment and Plan - Patient Problems (1) Coronary artery disease Current Visit: Yes Status: Acute Plan to address problem: Patient's coronary artery disease is stable and asymptomatic since following his coronary artery bypass 6 months ago. Will continue medical therapy for his coronary disease and underlying ischemic cardiomyopathy. No additional cardiac workup is indicated at this time, continue routine outpatient follow-up on discharge. His primary complaint on presentation at this time is uncontrolled diabetes. I will defer to the medical service for adjustment of his diabetic regimen and diet for optimal control.
[2017-10-24] MEDS: DIOVAN PO SCH (13:18)
[2017-10-24 14:59] LABS: Chol/HDL Ratio 6.29 %; HDL Cholesterol 47 mg/dL (40-59); LDL Cholesterol,Direct TNR mg/dL (50-130)
[2017-10-24] MEDS: PRAVACHOL PO SCH (23:08)
[2017-10-24] MEDS: LEVEMIR SUB-Q SCH (23:08)
[2017-10-25] MEDS: MILK OF MAGNESIA PO PRN ×2 (04:05→12:44)
[2017-10-25] MEDS: GUAIFENESIN DM SYRUP PO SCH ×2 (06:50→12:44)
[2017-10-25] MEDS: PLAVIX PO SCH (09:58)
[2017-10-25] MEDS: PEPCID PO SCH (09:58)
[2017-10-25] MEDS: BABY ASPIRIN PO SCH (09:58)
[2017-10-25] MEDS: K-DUR PO SCH (09:58)
[2017-10-25] MEDS: COREG PO SCH (09:59)
[2017-10-25] MEDS: DIOVAN PO SCH (09:59)
[2017-10-25] MEDS: NOVOLOG SUB-Q SCH ×4 (09:59→12:44)
--- NOTE | 2017-10-25 13:34 | Progress Note ---
Assessment and Plan - Patient Problems (1) Coronary artery disease Current Visit: Yes Status: Acute Plan to address problem: Patient's coronary artery disease is stable and asymptomatic since following his coronary artery bypass 6 months ago. Will continue medical therapy for his coronary disease and underlying ischemic cardiomyopathy. No additional cardiac workup is indicated at this time, continue routine outpatient follow-up on discharge. His primary complaint on presentation at this time is uncontrolled diabetes. I will defer to the medical service for adjustment of his diabetic regimen and diet for optimal control. Subjective Date of service: 10/25/17 Interval history: Patient is comfortable, no cardiac complaints. Objective Vital Signs Temp Pulse Resp BP BP Pulse Ox 10/25/17 11:49 97.9 F 68 18 154/81 97 10/25/17 10:43 62 10/25/17 08:07 98.7 F 62 16 158/82 91 10/25/17 04:19 98.3 F 57 L 18 138/71 95 10/25/17 04:02 98.6 F 63 22 149/78 96 10/25/17 03:57 20 149/78 10/24/17 23:44 97.8 F 63 18 151/75 94 10/24/17 19:38 98.1 F 59 L 18 174/86 98 10/24/17 18:00 76 10/24/17 17:16 69 167/87 95 - Physical Examination General: No Apparent Distress HEENT: Positive: PERRL Neck: Positive: neck supple Cardiac: Positive: Reg Rate and Rhythm Lungs: Positive: Decreased Breath Sounds Neuro: Positive: Grossly Intact Abdomen: Positive: Soft Skin: Positive: Clear Extremities: Absent: edema - Labs and Meds Lipids 10/24/17 Range/Units 13:44 Triglycerides 694 H (2-149) mg/dL Cholesterol 296 H (50-199) mg/dL HDL Cholesterol 47 (40-59) mg/dL Cholesterol/HDL Ratio 6.29 % - Imaging and Cardiology EKG: report reviewed (normal sinus rhythm no acute changes EKG interpreted by me )
--- NOTE | 2017-10-25 15:16 | Discharge Summary ---
Providers - Providers Date of Admission: 10/23/17 12:51 Attending physician: MITUL MONSON MD 10/23/17 17:21 Consult to Physician [CONS] Routine Consulting Provider: DELMER WATSON Reason For Exam: chest pain Place consult to:: WALTER BERNARD Notified:: Phone number called:: [phone] Was contact made?: Yes If yes, spoke with:: JOE Time called:: 09:35 Comment:: NORAH Primary care physician: [facility] Hospitalization Condition: Stable Hospital course: 67-year-old male with past medical history of coronary artery disease status post CABG in February 2017 and presents with chest pain. His chest pain resolved shortly after the hospital. He was seen by cardiology, his cardiac medications optimized. Acute coronary syndrome was ruled out by serial troponins. He also did have acute kidney injury, Lasix was discontinued after which she improved. He was medically treated for hyperkalemia after which it resolved. He did have hyperglycemia and his hemoglobin A1c was 12.8. His insulin is optimized. He did have elevated blood pressure, and his blood pressure medications were optimized. He was continued on the rest of his chronic medications. All his symptoms resolved, and cardiology did not recommend any further testing. He was subsequently discharged. Discharge diagnoses Chest pain due to htn urgency Acute kidney injury/vasomotor nephropathy Hypertensive urgency Hyperkalemia Type 2 diabetes, insulin-dependent Hyperlipidemia GERD COPD Moderate malnutrition Disposition: TO HOME OR SELFCARE Time spent for discharge: 33 minutes Core Measure Documentation - Palliative Care Palliative Care/ Comfort Measures: Not Applicable - Core Measures Any of the following diagnoses?: none Exam - Constitutional Vitals: Temp Pulse Resp BP Pulse Ox 97.9 F 68 18 154/81 97 10/25/17 11:49 10/25/17 11:49 10/25/17 11:49 10/25/17 11:49 10/25/17 11:49 General appearance: Present: no acute distress, well-nourished - EENT Eyes: Present: PERRL ENT: hearing intact, clear oral mucosa - Neck Neck: Present: supple, normal ROM - Respiratory Respiratory effort: normal Respiratory: bilateral: CTA - Cardiovascular Heart Sounds: Present: S1 & S2. Absent: rub, click - Extremities Extremities: pulses symmetrical, No edema Peripheral Pulses: within normal limits - Abdominal General gastrointestinal: Present: soft, non-tender, non-distended, normal bowel sounds Male genitourinary: Present: normal - Integumentary Integumentary: Present: clear, warm, dry - Musculoskeletal Musculoskeletal: gait normal, strength equal bilaterally - Psychiatric Psychiatric: appropriate mood/affect, intact judgment & insight - Neurologic Neurologic: CNII-XII intact, moves all extremities Plan Follow up with: PRIMARY CARE, [Primary Care Provider] - 3-5 Days Prescriptions: Insulin Glargine [Lantus VIAL] 50 units SC QHS #1 vial Lovastatin [Altoprev] 20 mg PO QHS #30 tab.er.24h Aspirin EC [Aspirin Enteric Coated TAB] 81 mg PO QDAY #30 tablet. Carvedilol [Coreg] 12.5 mg PO BID #60 tablet Clopidogrel [Plavix] 75 mg PO DAILY #30 tablet MDD 75mg Famotidine [Pepcid] 20 mg PO BID #60 tablet Insulin Aspart [NovoLOG Flexpen] 1 dose SQ AC #5 pen Nitroglycerin [Nitrostat] 0.4 mg SL Q5M PRN #60 tablet PRN Reason: Chest Pain traMADol [Ultram 50 MG tab] 50 mg PO Q6H PRN #14 tablet PRN Reason: Pain Valsartan [Diovan] 320 mg PO QDAY #30 tablet Ipratropium/Albuterol Sulfate [DUONEB *Not for PRN Use*] 1 ampul IH TIDRT PRN # 180 ampul.neb PRN Reason: Shortness Of Breath
[2017-10-25 17:41] VITALS: BP 156/82
== END 2017-10-25 17:16 | disposition home or self-care (01) | DRG 302 ==
LOC: ED 10:49 → 4A 12:51
PROVIDERS: ADMIT Internal Medicine; ATTEND Internal Medicine
DX: I25.10 Atherosclerotic heart disease of native coronary artery without angina pectoris (principal); N17.0 Acute kidney failure with tubular necrosis; E44.0 Moderate protein-calorie malnutrition; I16.0 Hypertensive urgency; E87.5 Hyperkalemia; K21.9 Gastro-esophageal reflux disease without esophagitis; J44.9 Chronic obstructive pulmonary disease, unspecified; I10 Essential (primary) hypertension; E11.65 Type 2 diabetes mellitus with hyperglycemia; E78.5 Hyperlipidemia, unspecified; E78.00 Pure hypercholesterolemia, unspecified; I25.5 Ischemic cardiomyopathy; Z79.4 Long term (current) use of insulin; Z83.3 Family history of diabetes mellitus; Z68.25 Body mass index [BMI] 25.0-25.9, adult; Z95.1 Presence of aortocoronary bypass graft; I25.2 Old myocardial infarction
CPT/HCPCS: 36415; 71010; 80048; 80053; 80061; 80074; 81001; 82805; 82962; 83036; 83880; 84484; 85025; 93005; 93010; 96374; A9270-GY; J0360; J0610; J1815; J1818